=== PATIENT | female | born 1965 | race Caucasian/White ===

== ENCOUNTER → 2020-03-22 09:25 | Outpatient (CLI) | payer OTHER, SELFPAY ==
--- NOTE | 2020-03-22 09:32 | DI.MG.S_ITS ---
BILATERAL DIGITAL DIAGNOSTIC MAMMOGRAM 3D/2D: 03/22/2020 CLINICAL: Patient returns for a 6 month follow up of the right breast, due for bilateral exam. Comparison is made to exams dated: 09/20/2019 mammogram, 09/09/2019 mammogram, 08/27/2018 mammogram, and 08/14/2017 mammogram - [facility]. There are scattered fibroglandular elements in both breasts. There are stable grouped punctate calcifications in the right breast at 11 o'clock posterior depth. These are unchanged from the 2017 study. No other significant masses, calcifications, or other findings are seen in either breast. IMPRESSION: There is no mammographic evidence of malignancy. Return to annual mammogram screening schedule is recommended. This exam was interpreted at Station ID: [id number]. NOTE: For mammograms, a report in lay terms will be sent to the patient. Approximately 15% of breast malignancies will not be visualized mammographically. In the management of a palpable breast mass, a negative mammogram must not discourage biopsy of a clinically suspicious lesion. Electronically Signed By: Irish bhatt/:03/22/2020 10:28:00 letter sent: Normal Exam ACR BI-RADS Category 2: Benign Finding(s) 3342F
== END ==
PROVIDERS: PCP Student in an Organized Health Care Education/Training Program; Referring Provider Student in an Organized Health Care Education/Training Program; Visit Provider Student in an Organized Health Care Education/Training Program
DX: R92.1 Mammographic calcification found on diagnostic imaging of breast (principal)
CPT/HCPCS: 77066; G0279

== ENCOUNTER → 2020-05-17 10:24 | Outpatient (CLI) | payer OTHER, SELFPAY ==
[2020-05-19 08:52] LABS: COVID19 Sendout Not Detected (Not Detect)
== END ==
PROVIDERS: PCP Student in an Organized Health Care Education/Training Program; Visit Provider Physician Assistant
DX: Z11.59 Encounter for screening for other viral diseases (principal)
CPT/HCPCS: 87635

== ENCOUNTER → 2021-03-14 14:51 | Outpatient (CLI) | payer OTHER, SELFPAY ==
--- NOTE | 2021-03-14 | DI.MG.S_ITS ---
BILATERAL DIGITAL SCREENING MAMMOGRAM 3D/2D WITH CAD: 03/14/2021 CLINICAL: Routine screening. Comparison is made to exams dated: 03/22/2020 mammogram - [facility], 09/20/2019 mammogram, 09/09/2019 mammogram, and 08/27/2018 mammogram - [facility]. There are scattered fibroglandular elements in both breasts. Current study was also evaluated with a Computer Aided Detection (CAD) system. There is an oval equal density focal asymmetry with an indistinct margin in the right breast at 11 o'clock middle depth. No other significant masses, calcifications, or other findings are seen in either breast. IMPRESSION: INCOMPLETE: NEEDS ADDITIONAL IMAGING EVALUATION The oval equal density focal asymmetry in the right breast is indeterminate. Mediolateral and spot compression views as well as additional views with possible ultrasound are recommended. This exam was interpreted at Station ID: [id number]. NOTE: For mammograms, a report in lay terms will be sent to the patient. Approximately 15% of breast malignancies will not be visualized mammographically. In the management of a palpable breast mass, a negative mammogram must not discourage biopsy of a clinically suspicious lesion. Electronically Signed By: Edu singh/damion:03/14/2021 15:30:21 letter sent: Additional Imaging Needed ACR BI-RADS Category 0: Incomplete 3340F
== END ==
PROVIDERS: PCP Student in an Organized Health Care Education/Training Program; Referring Provider Student in an Organized Health Care Education/Training Program; Visit Provider Student in an Organized Health Care Education/Training Program
DX: Z12.31 Encounter for screening mammogram for malignant neoplasm of breast (principal); N64.89 Other specified disorders of breast
CPT/HCPCS: 77063; 77067

== ENCOUNTER → 2023-10-02 11:19 | Outpatient (CLI) | payer OTHER, SELFPAY ==
--- NOTE | 2023-10-02 11:27 | DI.RAD.S_ITS ---
PROCEDURE: XR FOOT RT MIN 3V INDICATIONS: RIGHT FOOT PAIN TECHNIQUE: 3 views of the foot were acquired. COMPARISON: None. FINDINGS: Bones: No fractures or dislocations. No suspicious bony lesions. Small calcaneal spur Soft tissues: No tibiotalar joint effusion. Achilles tendon appears normal. IMPRESSION: No acute bony abnormality. Approved by: Greg Nazario M.D. on 10/02/2023 at 19:39
== END ==
PROVIDERS: PCP Student in an Organized Health Care Education/Training Program; Referring Provider Podiatrist; Visit Provider Podiatrist
DX: M79.671 Pain in right foot (principal)
CPT/HCPCS: 73630

== ENCOUNTER → 2023-10-31 08:46 | Outpatient (CLI) | payer OTHER, SELFPAY ==
[2023-10-31 09:55] LABS: Add Manual Diff / Slide Review NO; Basophils Absolute Auto 0 /uL (0-100); Basophils Percent Auto 0.9 % (0-2); Eosinophils Absolute Auto 0 /uL (0-450); Eosinophils Percent Auto 0.8 % (2-4); Hematocrit 36.2 % (36-46); Hemoglobin 12.3 g/dL (12.0-16.0); Lymphocytes Absolute Auto 1200 /uL (1100-4500); Lymphocytes Percent Auto 32.8 % (25-40); Mean Corpuscular Hemoglobin 30.7 PG (26-34); Mean Corpuscular Volume 90.3 fL (80-100); Monocytes Absolute Auto 300 /uL (0-900); Monocytes Percent Auto 9.1 % (3-14); Neutrophils Absolute Auto 2100 /uL (1500-7000); Neutrophils Percent Auto 56.4 % (50-75); Platelet Count 193 X10^3/uL (150-400); Red Blood Cell Count 4.01 X10^6/uL (4.0-5.2); Red Cell Distribution Width 13.3 % (11.6-14.8); White Blood Cell Count 3.8 X10^3/uL (4.5-11.0)
[2023-10-31 10:02] LABS: Hemoglobin A1C% w Est Avg Glu 5.3 % (4.0-6.0)
[2023-10-31 10:07] LABS: Alanine Aminotransferase 20 IU/L (<35); Albumin Globulin Ratio 1.7 (1.0-2.8); Alkaline Phosphatase 62 U/L (38-126); Aspartate Aminotransferase 25 IU/L (14-36); Bilirubin Total 0.5 mg/dL (0.2-1.3); Blood Urea Nitrogen 16 mg/dL (7-17); Carbon Dioxide 29 mmol/L (22-32); Chloride 106 mmol/L (98-107); Cholesterol 154 mg/dL (140-199); Estimated Glomerular Filt Rate > 60 mL/min (>60); Globulin 2.4 g/dL (1.7-4.1); Glucose 81 mg/dL (80-110); HDL Cholesterol 60 mg/dL (40-60); HEMOLYSIS < 15 (0-50); LDL Cholesterol Calculated 83 mg/dL (<100); Potassium 4.1 mmol/L (3.4-5.1); Sodium 139 mmol/L (137-145); Total Protein 6.4 g/dL (6.3-8.2); Triglycerides 56 mg/dL (35-150)
[2023-10-31 11:06] LABS: HIV 1 & 2 Ab/Ag 4th Gen Combo NEGATIVE (NEGATIVE); Hep C Virus Ab w/Reflex Quant NEGATIVE s/c (NEGATIVE)
[2023-11-05 16:40] LABS: Lipoprotein (a) 390.9 nmol/L (<75.0)
== END ==
LOC: LAB 08:50
PROVIDERS: PCP Physician Assistant; Referring Provider Physician Assistant; Visit Provider Physician Assistant
DX: Z11.59 Encounter for screening for other viral diseases (principal); E78.5 Hyperlipidemia, unspecified; Z13.6 Encounter for screening for cardiovascular disorders; Z11.4 Encounter for screening for human immunodeficiency virus [HIV]
CPT/HCPCS: 36415; 80053; 80061; 83036; 83695; 85025; 86803; 87389

== ENCOUNTER → 2024-01-21 14:04 | Outpatient (CLI) | payer OTHER, SELFPAY ==
--- NOTE | 2024-01-21 14:07 | DI.RAD.S_ITS ---
PROCEDURE: XR SHOULDER LT MIN 2V INDICATIONS: LEFT SHOULDER PAIN TECHNIQUE: 3 views of the shoulder were acquired. COMPARISON: None. FINDINGS: Bones: No fractures or dislocations. No suspicious bony lesions. Visualized ribs appear intact. Soft tissues: No suspicious soft tissue calcifications. IMPRESSION: No acute bony abnormality. Dictated by: Luigi Schaefer M.D. on 01/21/2024 at 15:52 Approved by: Luigi Schaefer M.D. on 01/21/2024 at 15:53
--- NOTE | 2024-01-21 14:07 | DI.RAD.S_ITS ---
PROCEDURE: XR DEXA AXIAL SKELETON INDICATIONS: Asymptomatic menopausal state COMPARISON: None. FINDINGS: Lumbar Spine: Bone mineral density 0.876 g/cm2, T score -1.5. Left Hip: Bone mineral density 0.824 g/cm2, T score -1.0. Left Femoral Neck: Bone mineral density 0.645 g/cm2, T score -1.8. Right Hip: Bone mineral density 0.846 g/cm2, T score -0.8. Right Femoral Neck: Bone mineral density 0.688 g/cm2, T score -1.4. Fracture Risk Calculation (when applicable): 10-year fracture risk of a major osteoporotic fracture 9.2% and of a hip fracture 1.0%. (T score greater or equal to -1.0 to: NORMAL) (T score from -1.1 to -2.4: OSTEOPENIA) (T score less than or equal to -2.5: OSTEOPOROSIS) IMPRESSION: Osteopenia Follow-up guidelines as follows: Osteoporosis: Consider a repeat DEXA and Vertebral Fracture Assessment (VFA) exam in 2 years or sooner if medically necessary, to reassess this patient's status. Osteopenia: Consider a repeat DEXA in 2-3 years to reassess this patient's status, or if there is a new clinical indication. Normal: Consider a repeat DEXA in 5 years or sooner, or if there is a new clinical indication. All treatment decisions require clinical judgment and consideration of individual patient factors, including patient preferences, comorbidities, previous drug use, risk factors not captured in the FRAX model (e.g., frailty, falls, vitamin D deficiency, increased bone turnover, interval significant decline in bone density ) and possible under- or over-estimation of fracture risk by FRAX. In addition, the NOF Guide recommends that FDA-approved medical therapies be considered in postmenopausal women and men age >= 50 years with a: * Hip or vertebral (clinical or morphometric) fracture * T-score of <=-2.5 at the spine or hip * Ten-year fracture probability by FRAX of >= 3% for hip fracture or >=20% for major osteoporotic fracture. People with diagnosed cases of osteoporosis or at high risk for fracture should have regular bone mineral density tests. For patients eligible for Medicare, routine testing is allowed once every 2 years. The testing frequency can be increased to one year for patients who have rapidly progressing disease, those who are receiving or discontinuing medical therapy to restore bone mass, or have additional risk factors. Dictated by: Roel Strickland M.D. on 01/21/2024 at 21:46 Approved by: Roel Strickland M.D. on 01/21/2024 at 21:55
== END ==
PROVIDERS: Family Provider Physician Assistant; PCP Physician Assistant; Referring Provider Physician Assistant; Visit Provider Physician Assistant
DX: M25.512 Pain in left shoulder (principal); Z78.0 Asymptomatic menopausal state; M85.89 Other specified disorders of bone density and structure, multiple sites
CPT/HCPCS: 73030; 77080

== ENCOUNTER → 2024-03-23 11:37 | Outpatient (CLI) | payer OTHER, SELFPAY ==
--- NOTE | 2024-03-23 11:38 | DI.MG.S_ITS ---
BILATERAL DIGITAL SCREENING MAMMOGRAM 3D/2D WITH CAD: 03/23/2024 CLINICAL: Routine screening. Comparison is made to exams dated: 03/14/2021 mammogram, 03/22/2020 mammogram - [facility], 09/09/2019 mammogram, and 08/27/2018 mammogram - [facility]. There are scattered areas of fibroglandular density in both breasts (category b / 25%-50% glandular tissue). Current study was also evaluated with a Computer Aided Detection (CAD) system. No significant masses, calcifications, or other findings are seen in either breast. There has been no significant interval change. IMPRESSION: NEGATIVE There is no mammographic evidence of malignancy. A 1 year screening mammogram is recommended. Based on the Tyrer Cuzick model (a risk assessment model) the patient's lifetime risk is 6.6% and her 10 year risk is 2.6%. According to the ACR, ACS, and NCCN guidelines, an annual breast MRI exam along with mammogram is recommended if the patient's lifetime risk is 20% or greater. This exam was interpreted at Station ID: [id number]. NOTE: For mammograms, a report in lay terms will be sent to the patient. Approximately 15% of breast malignancies will not be visualized mammographically. In the management of a palpable breast mass, a negative mammogram must not discourage biopsy of a clinically suspicious lesion. Electronically Signed By: Reena pichardo/damion:03/23/2024 17:49:24 letter sent: Normal Exam ACR BI-RADS Category 1: Negative [id number]
== END ==
PROVIDERS: Family Provider Physician Assistant; PCP Physician Assistant; Referring Provider Physician Assistant; Visit Provider Physician Assistant
DX: Z12.31 Encounter for screening mammogram for malignant neoplasm of breast (principal); R92.323 Mammographic fibroglandular density, bilateral breasts
CPT/HCPCS: 77063; 77067

== ENCOUNTER 2024-04-20 11:15 | Outpatient (RCR) | payer OTHER, SELFPAY ==
--- NOTE | 2024-02-04 15:52 | PT.OIE ---
Current Diagnoses Other enthesopathies, not elsewhere classified (02/04/24) Dizziness and giddiness (02/04/24) Visit Care Team Role Provider Type Rupali Mehta PA-C Attending Provider Advanced General Production Manager Family Provider Primary Care Provider Referring Provider Specialty: Medical Address: [address] [place] [address], [id number] Email: Physical Therapy Initial Evaluation PT-OP-A Visit Information Start: 02/03/24 08:50 Freq: Status: Active Protocol: Document 02/04/24 14:31 MB (Rec: 02/04/24 15:49 [id number]) Out-Patient Physical Therapy Visit Information Visit Information Visit Type Initial Evaluation Visit Note [employer], Self-care Visit Start Time 14:31 Visit Stop Time 15:20 Visit Number 1 Evaluation Information Evaluation Date 02/04/24 Precautions Precautions History of BPPV PT-OP-B Current Condition Start: 02/03/24 08:50 Freq: Status: Active Protocol: Document 02/04/24 14:31 MB (Rec: 02/04/24 15:49 [id number]) Current Condition History of Current Condition Onset Date 4 months Current Complaints Left shoulder pain History of Current Condition 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 She would like to establish care and have access to someone who can treat her if needed. She currently does not have this. Pt reports gradual onset of left shoulder pain. She walks her dog who is a puller and a yanker. She asks about getting a personal shopper after PT. She sleeps on her back d/t lumbar transverse process fractures from the past. She points to B pelvic areas near sacrum. She puts a pillow under her left arm with sleeping. Occ she has pain down the arm and she notices it more at night time. Pt is right handed. She is retired. She only gardens at home. [place] of her parents 12-14 days out of every month. Driving is tiring. Prior Treatments and Tests Left shoulder x-ray is negative Treatment Goals Patient/Caregiver Goals To improve ROM and strength of left arm PT-OP-C Subjective Start: 02/03/24 08:50 Freq: Status: Active Protocol: Document 02/04/24 14:31 MB (Rec: 02/04/24 15:49 MB [id number]) OP-PT Subjective Patient Comments Patient Comments See history of current condition Patient Questionnaires Quick Dash- Upper Extremity Quick Dash UE Score 22 Quick Dash UE Impairment 20 to 39% Impaired (Score 20- 39) PT-OP-J Posture/Palpation/Skin Start: 02/03/24 08:50 Freq: Status: Active Protocol: Document 02/04/24 14:31 MB (Rec: 02/04/24 15:49 MB [id number]) Posture Evaluation Comments Posture Comments Flat thoracic spine proximally , rounded shoulders, right scapula is lower than the left , mid thoracic spine, mild convexity to the left and ribs more pronounced posterior on lower left area, increased supination left foot and increased pronation right foot , history of left ankle fracture. Posteriorly, B pelvis is grossly level and left shoulder is mildly higher than the right. PT-OP-K Range of Motion Start: 02/03/24 08:50 Freq: Status: Active Protocol: Document 02/04/24 14:31 MB (Rec: 02/04/24 15:49 MB [id number]) Cervical Spine Range of Motion Cervical Spine Active Testing Position Standing Comments Functional neck movement with slight decreased left rotation Thoracic rotation B with left 10% less than the right Shoulder Goniometric Range of Motion Shoulder Left Shoulder ROM WFL No Testing Position Standing/supine Flexion 115 Abduction 100 Internal Rotation Behind Back (text) S2 Comments Supine PROM for ER and IR: pt cannot get to 90 deg passive abduction and there is a hard end-feel around 65 deg and pt has apprehension and discomfort. ER at this angle is 5 deg and IR is 15 deg Right Shoulder ROM WFL Yes Testing Position Standing/supine Flexion 169 Abduction 165 Internal Rotation Behind Back (text) T5 Comments Supine 90/90 passive ER and IR WNLs PT-OP-M Strength Start: 02/04/24 15:50 Freq: Status: Active Protocol: Document 02/04/24 14:31 MB (Rec: 02/04/24 15:51 MB [id number]) Shoulder Strength Shoulder Manual Muscle Testing Left Comments Did not test d/t pain and limited range Right Flexion 5 Normal Abduction (C5) 5 Normal External Rotation 4+ Good+ Internal Rotation 4+ Good+ Elbow/Forearm Strength Elbow and Forearm Manual Muscle Testing Left Flexion (C6) 5 Normal Extension (C7) 4+ Good+ Right Flexion (C6) 5 Normal Extension (C7) 5 Normal PT-OP-Q Treatments Start: 02/03/24 08:50 Freq: Status: Active Protocol: Document 02/04/24 14:31 MB (Rec: 02/04/24 15:49 MB [id number]) Therapeutic Exercises Sitting Exercises Pulleys Comments Pt performs AAROM shoulder flexion and scaption Self-Care/Home Management Treatment Education Patient Education Body Mechanics,Home Exercise Program,Joint Protection,Pain Management,Posture Other Education Reviewed proper sleeping position to help protect shoulder in supine, discussed plan for PT treatment given her goals and schedule away to assist her parents, ed pt in benefits of purchasing pool noodles and pulleys PT-OP-T Assessment and Plan Start: 02/03/24 08:50 Freq: Status: Active Protocol: Document 02/04/24 14:31 MB (Rec: 02/04/24 15:49 MB [id number]) Physical Therapy Assessment Rehab Potential Rehabilitation Potential Fair Evaluation Complexity Number of Personal Factors/Comorbidities 1-2 Number of Body Systems Impaired 1-2 Clinical Presentation at Evaluation Evolving Impairments Impairments Activity Tolerance,Balance, Pain,Posture,ROM,Sensation, Soft Tissue Mobility,Strength, Vestibular Goals 3 Impairment Lack of HEP Plaster Whittler Goal (LTG) Pt will perform progressive HEP with I including postural, alignment, flexibility, strengthening and balance exercises to improve pain, range and strength. LTG Duration 10 weeks 2 Impairment Decreased left shoulder ROM Senior Care Goal (LTG) Pt will present with left shoulder flexion and abduction to at least 160 deg to improve functional use of arm with over tasks. LTG Duration 10 weeks 1 Impairment QuickDASH reflects 25% impairment Senior Care Goal (LTG) Pt will present with QuickDASH score reflecting no more than 5% impairment to improve ADLs and IADLs. LTG Duration 10 weeks Assessment Summary Assessment Pt is a 58 y/o female presenting with postural changes, left shoulder weakness and decreased active and passive left shoulder range of motion in setting of 4 month insidious onset of pain and stiffness. Pt states that her dog does pull a lot on the leash. Extensive education on ways to reduce dog pulling and left arm injury today. Pt has limited active left shoulder flexion, abduction and IR in standing and passive abduction and ER and IR in supine with hard end -feel with abduction as well as guarding and apprehension. Pt spends half the month away from home helping her parents. This may make OPPT challenging and she says she is a compliant. PT is concerned about adhesive capsulitis pattern of presentation given insidious onset over time without real injury in 58 y/o post- menopausal female. She may benefit from talking with primary provider about hormone testing and may also benefit from orthopedic consult in addition to PT. She will benefit from PT to improve range, strength, posture and pain. Pt reports a history of BPPV so will assess and treat if needed during PT course. Physical Therapy Plan Frequency and Duration Frequency of Treatment 1-2/wk Duration of treatment (weeks) 10 Plan of Care Start Date 02/04/24 Plan of Care End Date 04/23/24 Therapeutic Interventions Therapeutic Interventions Balance Training,Canalithic Repositioning,Home Exercise Program,Joint Mobilizations, Manual Therapy,Neuromuscular Re-education,Patient/Caregiver Education,Self-Care/Home Management,Soft Tissue Mobilization,Taping, Therapeutic Activities, Therapeutic Exercises, Vestibular Rehabilitation Modalities Cold Pack/Ice Massage,Electric Stimulation,Hot Packs, Ultrasound Other Referrals/Consults Referrals/Consults Recommended Orthopedic consult, PCP to check hormone panel Next Visit Focus/Plan Next Note Type Treatment Note Next Visit Plan Pool noodle and cane range exercises Isometrics in future Manual work including [place] Protocol
--- NOTE | 2024-02-04 15:52 | PT.OPPOC ---
Physical, Occupational & Speech Therapy At [facility] Current Diagnoses Other enthesopathies, not elsewhere classified (02/04/24) Dizziness and giddiness (02/04/24) Visit Care Team Role Provider Type Rupali Mehta PA-C Attending Provider Advanced Ball Shagger Family Provider Primary Care Provider Referring Provider Specialty: Medical Address: [address] [place] [address], [id number] Email: Plan Of Care PT-OP-T Assessment and Plan Start: 02/03/24 08:50 Freq: Status: Active Protocol: Document 02/04/24 14:31 MB (Rec: 02/04/24 15:49 MB [id number]) Physical Therapy Assessment Rehab Potential Rehabilitation Potential Fair Evaluation Complexity Number of Personal Factors/Comorbidities 1-2 Number of Body Systems Impaired 1-2 Clinical Presentation at Evaluation Evolving Impairments Impairments Activity Tolerance,Balance, Pain,Posture,ROM,Sensation, Soft Tissue Mobility,Strength, Vestibular Goals 3 Impairment Lack of HEP Longterm Goal (LTG) Pt will perform progressive HEP with I including postural, alignment, flexibility, strengthening and balance exercises to improve pain, range and strength. LTG Duration 10 weeks 2 Impairment Decreased left shoulder ROM Longterm Goal (LTG) Pt will present with left shoulder flexion and abduction to at least 160 deg to improve functional use of arm with over tasks. LTG Duration 10 weeks 1 Impairment QuickDASH reflects 25% impairment Longterm Goal (LTG) Pt will present with QuickDASH score reflecting no more than 5% impairment to improve ADLs and IADLs. LTG Duration 10 weeks Assessment Summary Assessment Pt is a 58 y/o female presenting with postural changes, left shoulder weakness and decreased active and passive left shoulder range of motion in setting of 4 month insidious onset of pain and stiffness. Pt states that her dog does pull a lot on the leash. Extensive education on ways to reduce dog pulling and left arm injury today. Pt has limited active left shoulder flexion, abduction and IR in standing and passive abduction and ER and IR in supine with hard end -feel with abduction as well as guarding and apprehension. Pt spends half the month away from home helping her parents. This may make OPPT challenging and she says she is a compliant. PT is concerned about adhesive capsulitis pattern of presentation given insidious onset over time without real injury in 58 y/o post- menopausal female. She may benefit from talking with primary provider about hormone testing and may also benefit from orthopedic consult in addition to PT. She will benefit from PT to improve range, strength, posture and pain. Pt reports a history of BPPV so will assess and treat if needed during PT course. Physical Therapy Plan Frequency and Duration Frequency of Treatment 1-2/wk Duration of treatment (weeks) 10 Plan of Care Start Date 02/04/24 Plan of Care End Date 04/23/24 Therapeutic Interventions Therapeutic Interventions Balance Training,Canalithic Repositioning,Home Exercise Program,Joint Mobilizations, Manual Therapy,Neuromuscular Re-education,Patient/Caregiver Education,Self-Care/Home Management,Soft Tissue Mobilization,Taping, Therapeutic Activities, Therapeutic Exercises, Vestibular Rehabilitation Modalities Cold Pack/Ice Massage,Electric Stimulation,Hot Packs, Ultrasound Other Referrals/Consults Referrals/Consults Recommended Orthopedic consult, PCP to check hormone panel Next Visit Focus/Plan Next Note Type Treatment Note Next Visit Plan Pool noodle and cane range exercises Isometrics in future Manual work including [place] Protocol Plan of Care Dates Plan of Care Start Date 02/04/24 Plan of Care End Date 04/23/24 Electronically Signed by: Chapis Marmolejo, PT 02/04/24 1693 If you are in agreement with this Plan of Care, please return a signed and dated copy. I have reviewed this Plan of Care and certify that the skilled therapy services above are required to meet the patient?s needs. Physician Signature Date Printed Name and Credentials Clinical Instructor Signature Printed Name and Credentials
--- NOTE | 2024-02-10 10:32 | PT.OTN ---
Current Diagnoses Other enthesopathies, not elsewhere classified (02/10/24) Dizziness and giddiness (02/10/24) Physical Therapy Treatment Note PT-OP-A Visit Information Start: 02/03/24 08:50 Freq: Status: Active Protocol: Document 02/10/24 09:45 MB (Rec: 02/10/24 10:32 MB [id number]) Out-Patient Physical Therapy Visit Information Visit Information Visit Type Treatment Note Visit Note [employer], Self-care Visit Start Time 09:45 Visit Stop Time 10:25 Visit Number 2 Evaluation Information Evaluation Date 02/04/24 Precautions Precautions History of BPPV PT-OP-B Current Condition Start: 02/03/24 08:50 Freq: Status: Active Protocol: Document 02/04/24 14:31 MB (Rec: 02/04/24 15:49 MB [id number]) Current Condition History of Current Condition Onset Date 4 months Current Complaints Left shoulder pain History of Current Condition 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 She would like to establish care and have access to someone who can treat her if needed. She currently does not have this. Pt reports gradual onset of left shoulder pain. She walks her dog who is a puller and a yanker. She asks about getting a animal attendants and trainers after PT. She sleeps on her back d/t lumbar transverse process fractures from the past. She points to B pelvic areas near sacrum. She puts a pillow under her left arm with sleeping. Occ she has pain down the arm and she notices it more at night time. Pt is right handed. She is retired. She only gardens at home. [place] of her parents 12-14 days out of every month. Driving is tiring. Prior Treatments and Tests Left shoulder x-ray is negative Treatment Goals Patient/Caregiver Goals To improve ROM and strength of left arm PT-OP-C Subjective Start: 02/03/24 08:50 Freq: Status: Active Protocol: Document 02/10/24 09:45 MB (Rec: 02/10/24 10:32 MB [id number]) OP-PT Subjective Patient Comments Patient Comments Pt brings in pulleys and pool noodle and she is ready to work on exercises with these. PT-OP-J Posture/Palpation/Skin Start: 02/03/24 08:50 Freq: Status: Active Protocol: Document 02/04/24 14:31 MB (Rec: 02/04/24 15:49 MB [id number]) Posture Evaluation Comments Posture Comments Flat thoracic spine proximally , rounded shoulders, right scapula is lower than the left , mid thoracic spine, mild convexity to the left and ribs more pronounced posterior on lower left area, increased supination left foot and increased pronation right foot , history of left ankle fracture. Posteriorly, B pelvis is grossly level and left shoulder is mildly higher than the right. PT-OP-K Range of Motion Start: 02/03/24 08:50 Freq: Status: Active Protocol: Document 02/04/24 14:31 MB (Rec: 02/04/24 15:49 MB [id number]) Cervical Spine Range of Motion Cervical Spine Active Testing Position Standing Comments Functional neck movement with slight decreased left rotation Thoracic rotation B with left 10% less than the right Shoulder Goniometric Range of Motion Shoulder Left Shoulder ROM WFL No Testing Position Standing/supine Flexion 115 Abduction 100 Internal Rotation Behind Back (text) S2 Comments Supine PROM for ER and IR: pt cannot get to 90 deg passive abduction and there is a hard end-feel around 65 deg and pt has apprehension and discomfort. ER at this angle is 5 deg and IR is 15 deg Right Shoulder ROM WFL Yes Testing Position Standing/supine Flexion 169 Abduction 165 Internal Rotation Behind Back (text) T5 Comments Supine 90/90 passive ER and IR WNLs PT-OP-M Strength Start: 02/04/24 15:50 Freq: Status: Active Protocol: Document 02/04/24 14:31 MB (Rec: 02/04/24 15:51 MB [id number]) Shoulder Strength Shoulder Manual Muscle Testing Left Comments Did not test d/t pain and limited range Right Flexion 5 Normal Abduction (C5) 5 Normal External Rotation 4+ Good+ Internal Rotation 4+ Good+ Elbow/Forearm Strength Elbow and Forearm Manual Muscle Testing Left Flexion (C6) 5 Normal Extension (C7) 4+ Good+ Right Flexion (C6) 5 Normal Extension (C7) 5 Normal PT-OP-Q Treatments Start: 02/03/24 08:50 Freq: Status: Active Protocol: Document 02/10/24 09:45 MB (Rec: 02/10/24 10:32 MB [id number]) Therapeutic Exercises Supine Exercises Pect stretch over pool noodle Comments Knees bent and back flat, core engaged Pool noodle work Comments Flat low back, knees bent, core work, cane flexion and abduction Sitting Exercises Scapular retraction with pool noodle Comments Ed pt to perform in car and when sitting on couch Pulleys Sitting Exercise Name Also taught forward and backwards bicycling Comments Pt performs AAROM shoulder flexion and scaption Manual Therapy Treatment Other Other Manual Treatments Pt supine with head and legs supported: left rib isometric mob, B pects, upper traps and levator STM, cervical spine mobs grade II-III PA mid and lower cervical spine PT-OP-T Assessment and Plan Start: 02/03/24 08:50 Freq: Status: Active Protocol: Document 02/10/24 09:45 MB (Rec: 02/10/24 10:32 MB [id number]) Physical Therapy Assessment Rehab Potential Rehabilitation Potential Fair Evaluation Complexity Number of Personal Factors/Comorbidities 1-2 Number of Body Systems Impaired 1-2 Clinical Presentation at Evaluation Evolving Impairments Impairments Activity Tolerance,Balance, Pain,Posture,ROM,Sensation, Soft Tissue Mobility,Strength, Vestibular Goals 3 Impairment Lack of HEP Snf Goal (LTG) Pt will perform progressive HEP with I including postural, alignment, flexibility, strengthening and balance exercises to improve pain, range and strength. LTG Duration 10 weeks 2 Impairment Decreased left shoulder ROM Snf Goal (LTG) Pt will present with left shoulder flexion and abduction to at least 160 deg to improve functional use of arm with over tasks. LTG Duration 10 weeks 1 Impairment QuickDASH reflects 25% impairment Snf Goal (LTG) Pt will present with QuickDASH score reflecting no more than 5% impairment to improve ADLs and IADLs. LTG Duration 10 weeks Assessment Summary Assessment Initiated postural work and shoulder progression, con't to advance to tolerance. Con't manual work. Physical Therapy Plan Frequency and Duration Frequency of Treatment 1-2/wk Duration of treatment (weeks) 10 Plan of Care Start Date 02/04/24 Plan of Care End Date 04/23/24 Therapeutic Interventions Therapeutic Interventions Balance Training,Canalithic Repositioning,Home Exercise Program,Joint Mobilizations, Manual Therapy,Neuromuscular Re-education,Patient/Caregiver Education,Self-Care/Home Management,Soft Tissue Mobilization,Taping, Therapeutic Activities, Therapeutic Exercises, Vestibular Rehabilitation Modalities Cold Pack/Ice Massage,Electric Stimulation,Hot Packs, Ultrasound Other Referrals/Consults Referrals/Consults Recommended Orthopedic consult, PCP to check hormone panel Next Visit Focus/Plan Next Note Type Treatment Note Next Visit Plan Review current exercises and manual work Isometrics in future, consider holding band in neutral at side and walking out to engage ERs and IRs, scapular retraction with band in standing Manual work including [place] Protocol
--- NOTE | 2024-02-13 11:14 | PT.OTN ---
Current Diagnoses Other enthesopathies, not elsewhere classified (02/13/24) Dizziness and giddiness (02/13/24) Physical Therapy Treatment Note PT-OP-A Visit Information Start: 02/03/24 08:50 Freq: Status: Active Protocol: Document 02/13/24 10:34 SP (Rec: 02/13/24 11:23 SP [id number]) Out-Patient Physical Therapy Visit Information Visit Information Visit Type Treatment Note Visit Note [employer], Self-care Visit Start Time 10:34 Visit Stop Time 11:14 Visit Number 3 Number of LENS FABRICATING MACHINE TENDER Visits 1 Evaluation Information Evaluation Date 02/04/24 Precautions Precautions History of BPPV PT-OP-B Current Condition Start: 02/03/24 08:50 Freq: Status: Active Protocol: Document 02/04/24 14:31 MB (Rec: 02/04/24 15:49 MB [id number]) Current Condition History of Current Condition Onset Date 4 months Current Complaints Left shoulder pain History of Current Condition 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 She would like to establish care and have access to someone who can treat her if needed. She currently does not have this. Pt reports gradual onset of left shoulder pain. She walks her dog who is a puller and a yanker. She asks about getting a dolphin trainer after PT. She sleeps on her back d/t lumbar transverse process fractures from the past. She points to B pelvic areas near sacrum. She puts a pillow under her left arm with sleeping. Occ she has pain down the arm and she notices it more at night time. Pt is right handed. She is retired. She only gardens at home. [place] care of her parents 12-14 days out of every month. Driving is tiring. Prior Treatments and Tests Left shoulder x-ray is negative Treatment Goals Patient/Caregiver Goals To improve ROM and strength of left arm PT-OP-C Subjective Start: 02/03/24 08:50 Freq: Status: Active Protocol: Document 02/13/24 10:34 SP (Rec: 02/13/24 11:23 SP [id number]) OP-PT Subjective Patient Comments Patient Comments Pt reports compliant with HEP over noodle, little sore anterior L shld but goes away with CP. Doing 2x/day if can with busy schedule. PT-OP-J Posture/Palpation/Skin Start: 02/03/24 08:50 Freq: Status: Active Protocol: Document 02/04/24 14:31 MB (Rec: 02/04/24 15:49 MB [id number]) Posture Evaluation Comments Posture Comments Flat thoracic spine proximally , rounded shoulders, right scapula is lower than the left , mid thoracic spine, mild convexity to the left and ribs more pronounced posterior on lower left area, increased supination left foot and increased pronation right foot , history of left ankle fracture. Posteriorly, B pelvis is grossly level and left shoulder is mildly higher than the right. PT-OP-K Range of Motion Start: 02/03/24 08:50 Freq: Status: Active Protocol: Document 02/04/24 14:31 MB (Rec: 02/04/24 15:49 MB [id number]) Cervical Spine Range of Motion Cervical Spine Active Testing Position Standing Comments Functional neck movement with slight decreased left rotation Thoracic rotation B with left 10% less than the right Shoulder Goniometric Range of Motion Shoulder Left Shoulder ROM WFL No Testing Position Standing/supine Flexion 115 Abduction 100 Internal Rotation Behind Back (text) S2 Comments Supine PROM for ER and IR: pt cannot get to 90 deg passive abduction and there is a hard end-feel around 65 deg and pt has apprehension and discomfort. ER at this angle is 5 deg and IR is 15 deg Right Shoulder ROM WFL Yes Testing Position Standing/supine Flexion 169 Abduction 165 Internal Rotation Behind Back (text) T5 Comments Supine 90/90 passive ER and IR WNLs PT-OP-M Strength Start: 02/04/24 15:50 Freq: Status: Active Protocol: Document 02/04/24 14:31 MB (Rec: 02/04/24 15:51 MB [id number]) Shoulder Strength Shoulder Manual Muscle Testing Left Comments Did not test d/t pain and limited range Right Flexion 5 Normal Abduction (C5) 5 Normal External Rotation 4+ Good+ Internal Rotation 4+ Good+ Elbow/Forearm Strength Elbow and Forearm Manual Muscle Testing Left Flexion (C6) 5 Normal Extension (C7) 4+ Good+ Right Flexion (C6) 5 Normal Extension (C7) 5 Normal PT-OP-Q Treatments Start: 02/03/24 08:50 Freq: Status: Active Protocol: Document 02/13/24 10:34 SP (Rec: 02/13/24 11:23 SP [id number]) Therapeutic Exercises Supine Exercises Pect stretch over pool noodle Reps/Minutes 30 sec hold Comments Knees bent and back flat, core engaged Pool noodle work Supine Exercise Name cane flexion and abduction Side left Reps/Minutes 8 reps each Comments cued Flat low back, knees bent , core work Sitting Exercises Scapular retraction with pool noodle Sitting Exercise Name continued discussion- not performed 02/12 Comments Ed pt to perform in car and when sitting on couch Other Exercises self STMs Other Exercise Name initiated ball rolling post interscap, theracane post cervical paraspinals Side left Equipment Used racquetball wall (pillowcase to much sliding, better without), theracane Reps/Minutes 2 min Comments good feedback response- MWM head nods/turns, scap mob small range Manual Therapy Treatment Other Other Manual Treatments Pt supine with head and legs supported: B upper traps, L>R levator, L>R SCM, L>R scalene STM manual and ed theracane self assist SCM pincer kneading and MWM head turns/ nods. Self-Care/Home Management Treatment Education Patient Education Body Mechanics,Home Exercise Program,Joint Protection,Pain Management,Posture Other Education 8 min: ed postural awareness and anatomy alignment carryover support, self STMs use ballwall and theracane. PT-OP-T Assessment and Plan Start: 02/03/24 08:50 Freq: Status: Active Protocol: Document 02/13/24 10:34 SP (Rec: 02/13/24 11:23 SP [id number]) Physical Therapy Assessment Goals 3 Impairment Lack of HEP Impairment . Stock Or Delivery Clerk Goal (LTG) Pt will perform progressive HEP with I including postural, alignment, flexibility, strengthening and balance exercises to improve pain, range and strength. LTG Duration 10 weeks 2 Impairment Decreased left shoulder ROM Impairment . [facility] Goal (LTG) Pt will present with left shoulder flexion and abduction to at least 160 deg to improve functional use of arm with over tasks. LTG Duration 10 weeks 1 Impairment QuickDASH reflects 25% impairment Impairment . Stock Or Delivery Clerk Goal (LTG) Pt will present with QuickDASH score reflecting no more than 5% impairment to improve ADLs and IADLs. LTG Duration 10 weeks Assessment Summary Assessment Pt responded well to manual and carryover self application home after ed on anatomy mechanics for postural awareness during mobility. Cues for painfree range AROM at this time with support of cane toward return to normal ROM with education before adding resistance progression for reduction in UT recruitment. Pt better understanding better quality form. Physical Therapy Plan Frequency and Duration Frequency of Treatment 1-2/wk Duration of treatment (weeks) 10 Plan of Care Start Date 02/04/24 Plan of Care End Date 04/23/24 Therapeutic Interventions Therapeutic Interventions Balance Training,Canalithic Repositioning,Home Exercise Program,Joint Mobilizations, Manual Therapy,Neuromuscular Re-education,Patient/Caregiver Education,Self-Care/Home Management,Soft Tissue Mobilization,Taping, Therapeutic Activities, Therapeutic Exercises, Vestibular Rehabilitation Modalities Cold Pack/Ice Massage,Electric Stimulation,Hot Packs, Ultrasound Other Referrals/Consults Referrals/Consults Recommended Orthopedic consult, PCP to check hormone panel Next Visit Focus/Plan Next Note Type Treatment Note Next Visit Plan Check response to manual and self ex use ball wall and theracane. Continue reviewed current exercises toward better ROM. manual work. Isometrics in future, consider holding band in neutral at side and walking out to engage ERs and IRs, scapular retraction with band in standing Manual work including [place] Protocol
--- NOTE | 2024-02-25 09:01 | PT.OTN ---
Current Diagnoses Other enthesopathies, not elsewhere classified (02/25/24) Dizziness and giddiness (02/25/24) Physical Therapy Treatment Note PT-OP-A Visit Information Start: 02/03/24 08:50 Freq: Status: Active Protocol: Document 02/25/24 08:18 SP (Rec: 02/25/24 09:06 SP [id number]) Out-Patient Physical Therapy Visit Information Visit Information Visit Type Treatment Note Visit Note [employer], Self-care Visit Start Time 08:18 Visit Stop Time 09:01 Visit Number 4 Number of WATER TREATMENT SPECIALIST Visits 2 Evaluation Information Evaluation Date 02/04/24 Precautions Precautions History of BPPV PT-OP-B Current Condition Start: 02/03/24 08:50 Freq: Status: Active Protocol: Document 02/04/24 14:31 MB (Rec: 02/04/24 15:49 MB [id number]) Current Condition History of Current Condition Onset Date 4 months Current Complaints Left shoulder pain History of Current Condition 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 She would like to establish care and have access to someone who can treat her if needed. She currently does not have this. Pt reports gradual onset of left shoulder pain. She walks her dog who is a puller and a yanker. She asks about getting a personal support worker after PT. She sleeps on her back d/t lumbar transverse process fractures from the past. She points to B pelvic areas near sacrum. She puts a pillow under her left arm with sleeping. Occ she has pain down the arm and she notices it more at night time. Pt is right handed. She is retired. She only gardens at home. [place] of her parents 12-14 days out of every month. Driving is tiring. Prior Treatments and Tests Left shoulder x-ray is negative Treatment Goals Patient/Caregiver Goals To improve ROM and strength of left arm PT-OP-C Subjective Start: 02/03/24 08:50 Freq: Status: Active Protocol: Document 02/25/24 08:18 SP (Rec: 02/25/24 09:06 SP [id number]) OP-PT Subjective Patient Comments Patient Comments Pt reports out of town and tried to keep up with ex 70 %, not all days 2x. The theracane is very helpful and family found will get one too. She states Some days couldn't use noodle so tried to at least do Ws with best posture could. SHe reports is noticing if has to pinner printed circuit boards alot, lay on R side: R arm to hand gets tingling posterior surface R arm to 4-5th fingers, goes away with rest. But noticing alot more when used the weed eater/boot trimmer. PT-OP-J Posture/Palpation/Skin Start: 02/03/24 08:50 Freq: Status: Active Protocol: Document 02/04/24 14:31 MB (Rec: 02/04/24 15:49 MB [id number]) Posture Evaluation Comments Posture Comments Flat thoracic spine proximally , rounded shoulders, right scapula is lower than the left , mid thoracic spine, mild convexity to the left and ribs more pronounced posterior on lower left area, increased supination left foot and increased pronation right foot , history of left ankle fracture. Posteriorly, B pelvis is grossly level and left shoulder is mildly higher than the right. PT-OP-K Range of Motion Start: 02/03/24 08:50 Freq: Status: Active Protocol: Document 02/04/24 14:31 MB (Rec: 02/04/24 15:49 MB [id number]) Cervical Spine Range of Motion Cervical Spine Active Testing Position Standing Comments Functional neck movement with slight decreased left rotation Thoracic rotation B with left 10% less than the right Shoulder Goniometric Range of Motion Shoulder Left Shoulder ROM WFL No Testing Position Standing/supine Flexion 115 Abduction 100 Internal Rotation Behind Back (text) S2 Comments Supine PROM for ER and IR: pt cannot get to 90 deg passive abduction and there is a hard end-feel around 65 deg and pt has apprehension and discomfort. ER at this angle is 5 deg and IR is 15 deg Right Shoulder ROM WFL Yes Testing Position Standing/supine Flexion 169 Abduction 165 Internal Rotation Behind Back (text) T5 Comments Supine 90/90 passive ER and IR WNLs PT-OP-M Strength Start: 02/04/24 15:50 Freq: Status: Active Protocol: Document 02/04/24 14:31 MB (Rec: 02/04/24 15:51 MB [id number]) Shoulder Strength Shoulder Manual Muscle Testing Left Comments Did not test d/t pain and limited range Right Flexion 5 Normal Abduction (C5) 5 Normal External Rotation 4+ Good+ Internal Rotation 4+ Good+ Elbow/Forearm Strength Elbow and Forearm Manual Muscle Testing Left Flexion (C6) 5 Normal Extension (C7) 4+ Good+ Right Flexion (C6) 5 Normal Extension (C7) 5 Normal PT-OP-Q Treatments Start: 02/03/24 08:50 Freq: Status: Active Protocol: Document 02/25/24 08:18 SP (Rec: 02/25/24 09:06 SP [id number]) Therapeutic Exercises Supine Exercises Pect stretch over pool noodle Supine Exercise Name Pec stretch (1st) & Ws (Last- [place]) Resistance uses thicker noodle home, normal car Reps/Minutes 30 sec hold, Ws x10 Comments Knees bent and back flat, core engaged Pool noodle work Supine Exercise Name cane flexion (148*), abduction (103* Side left Equipment Used use black dowel (use wooden 1 home) Reps/Minutes 10 reps each Comments cued Flat low back, knees bent , core work Sidelying Exercises abduction Sidelying Exercise Name trialed in PT Side left Resistance AROM approx 80deg Reps/Minutes x3 reps Comments tactile cue scapular glide, humeral ER open book Sidelying Exercise Name trialed in PT Side left Resistance AROM Reps/Minutes 3 reps Comments tactile cue scapular glide, humeral ER Sitting Exercises Scapular retraction with pool noodle Sitting Exercise Name standing and seated couch carryover Reps/Minutes 1 min wall Comments got 2 noodles, cut 1 and tried in car on her drive /c safety driving- good Pulleys Sitting Exercise Name Bicycling, scaption, FF- HEP reviewed Side bilateral Resistance AAROM Equipment Used handles vs top handles, front mirror self aware no UT Reps/Minutes 2 min fwd & bwd bicycle, 1 min hold FF & Scaption Comments cued head nod neutral, tactile cue scap/hand post Other Exercises self STMs Other Exercise Name Ball roll interscap Side right Equipment Used racquetball wall (pillowcase to much sliding, better without) Reps/Minutes 2 min Comments good feedback response less tension- MWM Self-Care/Home Management Treatment Education Patient Education Body Mechanics,Home Exercise Program,Posture Other Education 8 min: ed anatomy /c skeleton scapular glide complex for inferior glide during FF/ scaption. PT-OP-T Assessment and Plan Start: 02/03/24 08:50 Freq: Status: Active Protocol: Document 02/25/24 08:18 SP (Rec: 02/25/24 09:06 SP [id number]) Physical Therapy Assessment Goals 3 Impairment Lack of HEP Impairment . Machine Room Operator Goal (LTG) Pt will perform progressive HEP with I including postural, alignment, flexibility, strengthening and balance exercises to improve pain, range and strength. LTG Duration 10 weeks 2 Impairment Decreased left shoulder ROM Impairment . [facility] Goal (LTG) Pt will present with left shoulder flexion and abduction to at least 160 deg to improve functional use of arm with over tasks. 02/25/24: Supine: LUE AAROM /c DOwel: FF 148*, ABD 103* LTG Duration 10 weeks 1 Impairment QuickDASH reflects 25% impairment Impairment . [facility] Goal (LTG) Pt will present with QuickDASH score reflecting no more than 5% impairment to improve ADLs and IADLs. LTG Duration 10 weeks Assessment Summary Assessment Pt required tactile cues for scapular inferior and rotation glide and humeral ER during ther ex, improved reduction UT recruitment. Pt reports less neck tension with better positioning. Improvement in range noted use dowel and use floor during Ws. Trialed sidelying AROM, noted muscle quiverying, no pain, tactile cues form, not given as HEP just checking what range capable on side. Physical Therapy Plan Frequency and Duration Frequency of Treatment 1-2/wk Duration of treatment (weeks) 10 Plan of Care Start Date 02/04/24 Plan of Care End Date 04/23/24 Therapeutic Interventions Therapeutic Interventions Balance Training,Canalithic Repositioning,Home Exercise Program,Joint Mobilizations, Manual Therapy,Neuromuscular Re-education,Patient/Caregiver Education,Self-Care/Home Management,Soft Tissue Mobilization,Taping, Therapeutic Activities, Therapeutic Exercises, Vestibular Rehabilitation Modalities Cold Pack/Ice Massage,Electric Stimulation,Hot Packs, Ultrasound Other Referrals/Consults Referrals/Consults Recommended Orthopedic consult, PCP to check hormone panel Next Visit Focus/Plan Next Note Type Treatment Note Next Visit Plan Check ROM with dowel, scapular glide ROM. Possible add side open book and ABD. POC: Continue reviewed current exercises toward better ROM. manual work. Isometrics in future, consider holding band in neutral at side and walking out to engage ERs and IRs, scapular retraction with band in standing Manual work including [place] Protocol
--- NOTE | 2024-03-01 10:28 | PT.OTN ---
Current Diagnoses Other enthesopathies, not elsewhere classified (03/01/24) Dizziness and giddiness (03/01/24) Physical Therapy Treatment Note PT-OP-A Visit Information Start: 02/03/24 08:50 Freq: Status: Active Protocol: Document 03/01/24 09:47 SP (Rec: 03/01/24 10:31 SP [id number]) Out-Patient Physical Therapy Visit Information Visit Information Visit Type Treatment Note Visit Note [employer], Self-care Visit Start Time 09:48 Visit Stop Time 10:28 Visit Number 5 Number of BACK SEWER Visits 3 Evaluation Information Evaluation Date 02/04/24 Precautions Precautions History of BPPV PT-OP-B Current Condition Start: 02/03/24 08:50 Freq: Status: Active Protocol: Document 02/04/24 14:31 MB (Rec: 02/04/24 15:49 MB [id number]) Current Condition History of Current Condition Onset Date 4 months Current Complaints Left shoulder pain History of Current Condition 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 She would like to establish care and have access to someone who can treat her if needed. She currently does not have this. Pt reports gradual onset of left shoulder pain. She walks her dog who is a puller and a yanker. She asks about getting a personalized living manager nurse after PT. She sleeps on her back d/t lumbar transverse process fractures from the past. She points to B pelvic areas near sacrum. She puts a pillow under her left arm with sleeping. Occ she has pain down the arm and she notices it more at night time. Pt is right handed. She is retired. She only gardens at home. [place] of her parents 12-14 days out of every month. Driving is tiring. Prior Treatments and Tests Left shoulder x-ray is negative Treatment Goals Patient/Caregiver Goals To improve ROM and strength of left arm PT-OP-C Subjective Start: 02/03/24 08:50 Freq: Status: Active Protocol: Document 03/01/24 09:47 SP (Rec: 03/01/24 10:31 SP [id number]) OP-PT Subjective Patient Comments Patient Comments Pt reports doing well with HEP , using theracane and helping alot. She reports less soreness after HEP. PT-OP-J Posture/Palpation/Skin Start: 02/03/24 08:50 Freq: Status: Active Protocol: Document 02/04/24 14:31 MB (Rec: 02/04/24 15:49 MB [id number]) Posture Evaluation Comments Posture Comments Flat thoracic spine proximally , rounded shoulders, right scapula is lower than the left , mid thoracic spine, mild convexity to the left and ribs more pronounced posterior on lower left area, increased supination left foot and increased pronation right foot , history of left ankle fracture. Posteriorly, B pelvis is grossly level and left shoulder is mildly higher than the right. PT-OP-K Range of Motion Start: 02/03/24 08:50 Freq: Status: Active Protocol: Document 02/04/24 14:31 MB (Rec: 02/04/24 15:49 MB [id number]) Cervical Spine Range of Motion Cervical Spine Active Testing Position Standing Comments Functional neck movement with slight decreased left rotation Thoracic rotation B with left 10% less than the right Shoulder Goniometric Range of Motion Shoulder Left Shoulder ROM WFL No Testing Position Standing/supine Flexion 115 Abduction 100 Internal Rotation Behind Back (text) S2 Comments Supine PROM for ER and IR: pt cannot get to 90 deg passive abduction and there is a hard end-feel around 65 deg and pt has apprehension and discomfort. ER at this angle is 5 deg and IR is 15 deg Right Shoulder ROM WFL Yes Testing Position Standing/supine Flexion 169 Abduction 165 Internal Rotation Behind Back (text) T5 Comments Supine 90/90 passive ER and IR WNLs PT-OP-M Strength Start: 02/04/24 15:50 Freq: Status: Active Protocol: Document 02/04/24 14:31 MB (Rec: 02/04/24 15:51 MB [id number]) Shoulder Strength Shoulder Manual Muscle Testing Left Comments Did not test d/t pain and limited range Right Flexion 5 Normal Abduction (C5) 5 Normal External Rotation 4+ Good+ Internal Rotation 4+ Good+ Elbow/Forearm Strength Elbow and Forearm Manual Muscle Testing Left Flexion (C6) 5 Normal Extension (C7) 4+ Good+ Right Flexion (C6) 5 Normal Extension (C7) 5 Normal PT-OP-Q Treatments Start: 02/03/24 08:50 Freq: Status: Active Protocol: Document 03/01/24 09:47 SP (Rec: 03/01/24 10:31 SP [id number]) Therapeutic Exercises Supine Exercises Pect stretch over pool noodle Supine Exercise Name Pec stretch (1st) & Ws (Last- [place]) Equipment Used uses thicker noodle home, normal car Reps/Minutes 30 sec hold, Ws x10 Comments good knees bent, TA draw in, scap back pocket,forearms more //floor and ROM Pool noodle work Supine Exercise Name cane flexion (148*), abduction (105* Side left Resistance AAROM over small foam roller Equipment Used use black dowel (use wooden 1 home) Reps/Minutes 12 reps each Comments cued TA draw in LB toward roller, eliminated arch tension recruitment Sidelying Exercises abduction Sidelying Exercise Name continued in PT- pt asked add to HEP Side left Resistance AROM approx 112deg Reps/Minutes x8 reps Comments tactile cue scapular glide, humeral ER, slight serratus away- less deltoid open book Sidelying Exercise Name continued in PT- pt asked add to HEP Side left Resistance AROM Reps/Minutes 5 Comments tactile cue scapular glide, humeral ER Standing Exercises wall walking Standing Exercise Name trialed in PT (alternative to jennifer for traveling) Side left Resistance AAROM Reps/Minutes 3 reps, 20 SH Comments tactile cue no UT, L shld isometric walk out IR & ER Standing Exercise Name trialed in PT- added to HEP Side left Resistance TB #1 peach Equipment Used towel vs no towel- same Reps/Minutes 5 step outs Comments cued tall posture, elbow at side-pnfree Manual Therapy Treatment Other Other Manual Treatments R SIdelying: L shld deltoid, supraspinatus, bicep, AC PA improved ROM OH ABD with cues serratus press and Humeral ER no pinch feeling. PT-OP-T Assessment and Plan Start: 02/03/24 08:50 Freq: Status: Active Protocol: Document 03/01/24 09:47 SP (Rec: 03/01/24 10:31 SP [id number]) Physical Therapy Assessment Goals 3 Impairment Lack of HEP Impairment . Halfway Goal (LTG) Pt will perform progressive HEP with I including postural, alignment, flexibility, strengthening and balance exercises to improve pain, range and strength. 03/01/24: noodle exercises with dowel assist and jennifer at home. LTG Duration 10 weeks progressing 03/01/24 2 Impairment Decreased left shoulder ROM Impairment . Client Services Administrator Goal (LTG) Pt will present with left shoulder flexion and abduction to at least 160 deg to improve functional use of arm with over tasks. 02/25/24: Supine: LUE AAROM /c DOwel: FF 148*, ABD 103* 03/01/24: stand:L FF 127*, 105*, ER 45* (elbow at side), IR hand over full sacrum fingers over R pelvis. LTG Duration 10 weeks progresing 03/01/24 1 Impairment QuickDASH reflects 25% impairment Impairment . Client Services Administrator Goal (LTG) Pt will present with QuickDASH score reflecting no more than 5% impairment to improve ADLs and IADLs. LTG Duration 10 weeks Assessment Summary Assessment Pt making gains in ROM. Showed alternative of pulleys standing wall walking due to going out of town and not bringing all equipement, can use rolled blanket on floor substitute foam roller for short period time. Improved ROM and form sidelying AROM LUE so added to HEP and initiated IR&ER isometric walk outs with HO provided. CUes for scap glide down and retraction and humeral ER during sidelying reduction UT recruitment. She reports L arm tiring with sidelying ex less tension into deltoid post manual and better with cues humeral serratus press and ER needed. Physical Therapy Plan Frequency and Duration Frequency of Treatment 1-2/wk Duration of treatment (weeks) 10 Plan of Care Start Date 02/04/24 Plan of Care End Date 04/23/24 Therapeutic Interventions Therapeutic Interventions Balance Training,Canalithic Repositioning,Home Exercise Program,Joint Mobilizations, Manual Therapy,Neuromuscular Re-education,Patient/Caregiver Education,Self-Care/Home Management,Soft Tissue Mobilization,Taping, Therapeutic Activities, Therapeutic Exercises, Vestibular Rehabilitation Modalities Cold Pack/Ice Massage,Electric Stimulation,Hot Packs, Ultrasound Other Referrals/Consults Referrals/Consults Recommended Orthopedic consult, PCP to check hormone panel Next Visit Focus/Plan Next Note Type Treatment Note Next Visit Plan Check foam roller ex /c dowel, added sidelying abd & open book & isometric IR&ER walk out. POC: Manual work, consider holding band in neutral at side, scapular retraction with band in standing Manual work including [place] Protocol
--- NOTE | 2024-03-03 08:37 | PT.OTN ---
Current Diagnoses Other enthesopathies, not elsewhere classified (03/03/24) Dizziness and giddiness (03/03/24) Physical Therapy Treatment Note PT-OP-A Visit Information Start: 02/03/24 08:50 Freq: Status: Active Protocol: Document 03/03/24 07:30 MB (Rec: 03/03/24 08:36 MB [id number]) Out-Patient Physical Therapy Visit Information Visit Information Visit Type Progress Note Visit Note [employer], Self-care Visit Start Time 07:30 Visit Stop Time 08:27 Visit Number 6 Number of PHILOSOPHY PROFESSOR Visits 0 Evaluation Information Evaluation Date 02/04/24 Precautions Precautions History of BPPV PT-OP-B Current Condition Start: 02/03/24 08:50 Freq: Status: Active Protocol: Document 02/04/24 14:31 MB (Rec: 02/04/24 15:49 MB [id number]) Current Condition History of Current Condition Onset Date 4 months Current Complaints Left shoulder pain History of Current Condition 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 She would like to establish care and have access to someone who can treat her if needed. She currently does not have this. Pt reports gradual onset of left shoulder pain. She walks her dog who is a puller and a yanker. She asks about getting a animal trainer after PT. She sleeps on her back d/t lumbar transverse process fractures from the past. She points to B pelvic areas near sacrum. She puts a pillow under her left arm with sleeping. Occ she has pain down the arm and she notices it more at night time. Pt is right handed. She is retired. She only gardens at home. [place] of her parents 12-14 days out of every month. Driving is tiring. Prior Treatments and Tests Left shoulder x-ray is negative Treatment Goals Patient/Caregiver Goals To improve ROM and strength of left arm PT-OP-C Subjective Start: 02/03/24 08:50 Freq: Status: Active Protocol: Document 03/03/24 07:30 MB (Rec: 03/03/24 08:36 MB [id number]) OP-PT Subjective Patient Comments Patient Comments Pt states that she is heading up to go fishing with her grand-daughter. Pt states that she is doing well. After doing her exercises now, she does not hurt as much. PT-OP-J Posture/Palpation/Skin Start: 02/03/24 08:50 Freq: Status: Active Protocol: Document 02/04/24 14:31 MB (Rec: 02/04/24 15:49 MB [id number]) Posture Evaluation Comments Posture Comments Flat thoracic spine proximally , rounded shoulders, right scapula is lower than the left , mid thoracic spine, mild convexity to the left and ribs more pronounced posterior on lower left area, increased supination left foot and increased pronation right foot , history of left ankle fracture. Posteriorly, B pelvis is grossly level and left shoulder is mildly higher than the right. PT-OP-K Range of Motion Start: 02/03/24 08:50 Freq: Status: Active Protocol: Document 02/04/24 14:31 MB (Rec: 02/04/24 15:49 MB [id number]) Cervical Spine Range of Motion Cervical Spine Active Testing Position Standing Comments Functional neck movement with slight decreased left rotation Thoracic rotation B with left 10% less than the right Shoulder Goniometric Range of Motion Shoulder Left Shoulder ROM WFL No Testing Position Standing/supine Flexion 115 Abduction 100 Internal Rotation Behind Back (text) S2 Comments Supine PROM for ER and IR: pt cannot get to 90 deg passive abduction and there is a hard end-feel around 65 deg and pt has apprehension and discomfort. ER at this angle is 5 deg and IR is 15 deg Right Shoulder ROM WFL Yes Testing Position Standing/supine Flexion 169 Abduction 165 Internal Rotation Behind Back (text) T5 Comments Supine 90/90 passive ER and IR WNLs PT-OP-M Strength Start: 02/04/24 15:50 Freq: Status: Active Protocol: Document 02/04/24 14:31 MB (Rec: 02/04/24 15:51 MB [id number]) Shoulder Strength Shoulder Manual Muscle Testing Left Comments Did not test d/t pain and limited range Right Flexion 5 Normal Abduction (C5) 5 Normal External Rotation 4+ Good+ Internal Rotation 4+ Good+ Elbow/Forearm Strength Elbow and Forearm Manual Muscle Testing Left Flexion (C6) 5 Normal Extension (C7) 4+ Good+ Right Flexion (C6) 5 Normal Extension (C7) 5 Normal PT-OP-Q Treatments Start: 02/03/24 08:50 Freq: Status: Active Protocol: Document 03/03/24 07:30 MB (Rec: 03/03/24 08:36 MB [id number]) Therapeutic Exercises Sidelying Exercises abduction Comments 5 reps left UE with two pillows under head and range to grossly 90 deg open book Comments 2 reps left side to review and cues to keep legs together/ don't move below Standing Exercises Shoulder ER Equipment Used Bibb band, latex free Reps/Minutes At least 10 reps Comments Elbow at side and cue for hitch hiker hand Scapular retraction Equipment Used Bibb band, latex free Reps/Minutes At least 10 reps Comments Better with elbows straight and not bent Other Exercises self STMs Comments Intrascapular and infraspinatus MWM, many minutes, cues for form Manual Therapy Treatment Consent Patient gave verbal consent for manual Yes treatment Other Other Manual Treatments Pt prone: grade II-III PA mobs spinous processes and ribs/ thoracic spine, scapular mobs, STM B upper traps and left ERs PT-OP-T Assessment and Plan Start: 02/03/24 08:50 Freq: Status: Active Protocol: Document 03/03/24 07:30 MB (Rec: 03/03/24 08:36 MB [id number]) Physical Therapy Assessment Goals 3 Impairment Lack of HEP Impairment . Senior Living Goal (LTG) Pt will perform progressive HEP with I including postural, alignment, flexibility, strengthening and balance exercises to improve pain, range and strength. 03/03/24: Pt is performing all exercises and she likes the bigger poool noodle, bicycling with the pulleys, range of motion exercises with cane, open book, standing ER and IR with arm at side in neutral LTG Duration 10 weeks 2 Impairment Decreased left shoulder ROM Impairment . Massage Operator Goal (LTG) Pt will present with left shoulder flexion and abduction to at least 160 deg to improve functional use of arm with over tasks. 02/25/24: Supine: LUE AAROM /c DOwel: FF 148*, ABD 103* 03/01/24: stand:L FF 127*, 105*, ER 45* (elbow at side), IR hand over full sacrum fingers over R pelvis. 03/03/24: Standing AROM, flexion right to 156 deg and left 130 deg; abduction right 160 deg and left 132 deg LTG Duration 10 weeks 1 Impairment QuickDASH reflects 25% impairment Impairment . Senior Living Goal (LTG) Pt will present with QuickDASH score reflecting no more than 5% impairment to improve ADLs and IADLs. 03/03/24: QuickDASH score reflects 38.63% impairment and pt reports she is much better and her arm is moving more. LTG Duration 10 weeks Assessment Summary Assessment Pt is progressing towards HEP, range and symptom reports. Her QuickDASH score has not improved but pt states that she doesn't know why because she is better. Overall, range and exercise performance is better. She will benefit from ongoing PT to progress range, posture and pain. Physical Therapy Plan Frequency and Duration Frequency of Treatment 1-2/wk Duration of treatment (weeks) 10 Plan of Care Start Date 02/04/24 Plan of Care End Date 04/23/24 Therapeutic Interventions Therapeutic Interventions Balance Training,Canalithic Repositioning,Home Exercise Program,Joint Mobilizations, Manual Therapy,Neuromuscular Re-education,Patient/Caregiver Education,Self-Care/Home Management,Soft Tissue Mobilization,Taping, Therapeutic Activities, Therapeutic Exercises, Vestibular Rehabilitation Modalities Cold Pack/Ice Massage,Electric Stimulation,Hot Packs, Ultrasound Other Referrals/Consults Referrals/Consults Recommended Orthopedic consult, PCP to check hormone panel Next Visit Focus/Plan Next Note Type Treatment Note Next Visit Plan Consider [place] Protocol, con't progress IR strengthening in standing with band, over the door scapular hold with elbow extension strengthening, con't progression over foam roller if pt tolerates
--- NOTE | 2024-03-17 07:24 | PT-OP ANOTE ---
Pt cancelled today and previous 3 appts since 03/03 last attended appt. Was out of town and now back needs to take care of her mother unable to leave alone. Next scheduled appt 03/22.
--- NOTE | 2024-03-22 09:41 | PT.OTN ---
Current Diagnoses Other enthesopathies, not elsewhere classified (03/22/24) Dizziness and giddiness (03/22/24) Physical Therapy Treatment Note PT-OP-A Visit Information Start: 02/03/24 08:50 Freq: Status: Active Protocol: Document 03/22/24 09:00 MB (Rec: 03/22/24 09:40 MB [id number]) Out-Patient Physical Therapy Visit Information Visit Information Visit Type Progress Note Visit Note [employer], Self-Care Visit Start Time 09:00 Visit Stop Time 09:40 Visit Number 7 Number of [place] [employer]OR[employer] Visits 0 Evaluation Information Evaluation Date 02/04/24 Precautions Precautions History of BPPV PT-OP-B Current Condition Start: 02/03/24 08:50 Freq: Status: Active Protocol: Document 02/04/24 14:31 MB (Rec: 02/04/24 15:49 MB [id number]) Current Condition History of Current Condition Onset Date 4 months Current Complaints Left shoulder pain History of Current Condition 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 She would like to establish care and have access to someone who can treat her if needed. She currently does not have this. Pt reports gradual onset of left shoulder pain. She walks her dog who is a puller and a yanker. She asks about getting a personal secretary after PT. She sleeps on her back d/t lumbar transverse process fractures from the past. She points to B pelvic areas near sacrum. She puts a pillow under her left arm with sleeping. Occ she has pain down the arm and she notices it more at night time. Pt is right handed. She is retired. She only gardens at home. [place] care of her parents 12-14 days out of every month. Driving is tiring. Prior Treatments and Tests Left shoulder x-ray is negative Treatment Goals Patient/Caregiver Goals To improve ROM and strength of left arm PT-OP-C Subjective Start: 02/03/24 08:50 Freq: Status: Active Protocol: Document 03/22/24 09:00 MB (Rec: 03/22/24 09:40 MB [id number]) OP-PT Subjective Patient Comments Patient Comments Pt states that she has been looking after her mother who she has brought to her home d/ t mother's memory challenges. She took her mother back to her home. She is sleeping better and her shoulder is feeling better overall. She wondering if we should d/c. PT-OP-J Posture/Palpation/Skin Start: 02/03/24 08:50 Freq: Status: Active Protocol: Document 02/04/24 14:31 MB (Rec: 02/04/24 15:49 MB [id number]) Posture Evaluation Comments Posture Comments Flat thoracic spine proximally , rounded shoulders, right scapula is lower than the left , mid thoracic spine, mild convexity to the left and ribs more pronounced posterior on lower left area, increased supination left foot and increased pronation right foot , history of left ankle fracture. Posteriorly, B pelvis is grossly level and left shoulder is mildly higher than the right. PT-OP-K Range of Motion Start: 02/03/24 08:50 Freq: Status: Active Protocol: Document 02/04/24 14:31 MB (Rec: 02/04/24 15:49 MB [id number]) Cervical Spine Range of Motion Cervical Spine Active Testing Position Standing Comments Functional neck movement with slight decreased left rotation Thoracic rotation B with left 10% less than the right Shoulder Goniometric Range of Motion Shoulder Left Shoulder ROM WFL No Testing Position Standing/supine Flexion 115 Abduction 100 Internal Rotation Behind Back (text) S2 Comments Supine PROM for ER and IR: pt cannot get to 90 deg passive abduction and there is a hard end-feel around 65 deg and pt has apprehension and discomfort. ER at this angle is 5 deg and IR is 15 deg Right Shoulder ROM WFL Yes Testing Position Standing/supine Flexion 169 Abduction 165 Internal Rotation Behind Back (text) T5 Comments Supine 90/90 passive ER and IR WNLs PT-OP-M Strength Start: 02/04/24 15:50 Freq: Status: Active Protocol: Document 02/04/24 14:31 MB (Rec: 02/04/24 15:51 MB [id number]) Shoulder Strength Shoulder Manual Muscle Testing Left Comments Did not test d/t pain and limited range Right Flexion 5 Normal Abduction (C5) 5 Normal External Rotation 4+ Good+ Internal Rotation 4+ Good+ Elbow/Forearm Strength Elbow and Forearm Manual Muscle Testing Left Flexion (C6) 5 Normal Extension (C7) 4+ Good+ Right Flexion (C6) 5 Normal Extension (C7) 5 Normal PT-OP-Q Treatments Start: 02/03/24 08:50 Freq: Status: Active Protocol: Document 03/22/24 09:00 MB (Rec: 03/22/24 09:40 [id number]) Cardio Equipment Upper Body Ergometer (UBE) Duration (Minutes) 10 Other 1 minute forward and 1 minute backwards Therapeutic Exercises Supine Exercises Foam roller exercises Supine Exercise Name Cane flexion x10 and pect stretch Comments Performed right now Standing Exercises Shoulder IR Resistance Beaufort band, latex free Reps/Minutes At least 10 reps Comments Cues for form AROM shoulders Comments Performed today and see goals for readings Shoulder ER Equipment Used Beaufort band, latex free Reps/Minutes At least 10 reps Comments Elbow at side and cue for hitch hiker hand Scapular retraction Equipment Used Beau[place] band, latex free Reps/Minutes At least 10 reps Comments Better with elbows straight and not bent Other Exercises Review of some of her previous exercises Comments Plank arms straight and sidelying abd and plank okay self STMs Comments Jim cat for infraspinatus today PT-OP-T Assessment and Plan Start: 02/03/24 08:50 Freq: Status: Active Protocol: Document 03/22/24 09:00 MB (Rec: 03/22/24 09:40 [id number]) Physical Therapy Assessment Goals 3 Impairment Lack of HEP Impairment . Usp Goal (LTG) Pt will perform progressive HEP with I including postural, alignment, flexibility, strengthening and balance exercises to improve pain, range and strength. 03/03/24: Pt is performing all exercises and she likes the bigger poool noodle, bicycling with the pulleys, range of motion exercises with cane, open book, standing ER and IR with arm at side in neutral 03/22/24: Pt is performing HEP and circulates through various exercises LTG Duration 10 weeks 2 Impairment Decreased left shoulder ROM Impairment . Usp Goal (LTG) Pt will present with left shoulder flexion and abduction to at least 160 deg to improve functional use of arm with over tasks. 02/25/24: Supine: LUMarianna LEDEZMA /elisha Ghotrael: FF 148*, ABD 103* 03/01/24: stand:L FF 127*, 105*, ER 45* (elbow at side), IR hand over full sacrum fingers over R pelvis. 03/03/24: Standing AROM, flexion right to 156 deg and left 130 deg; abduction right 160 deg and left 132 deg 03/22/24: Standing AROM flexion right: 176 deg and left 150 deg; abduction: right 175 deg and left 150 deg LTG Duration 10 weeks 1 Impairment QuickDASH reflects 25% impairment Impairment . Hot Plate Plywood Press Operator Goal (LTG) Pt will present with QuickDASH score reflecting no more than 5% impairment to improve ADLs and IADLs. 03/03/24: QuickDASH score reflects 38.63% impairment and pt reports she is much better and her arm is moving more. 03/22/24: QuickDASH score reflects 13.63% improvement LTG Duration 10 weeks Assessment Summary Assessment Pt has made improvements towards all PT goals. She has three more treatments and would like to con't with these and then hopes to d/c. While her left shoulder range is better, it is not normal. Physical Therapy Plan Frequency and Duration Frequency of Treatment 1-2/wk Duration of treatment (weeks) 10 Plan of Care Start Date 02/04/24 Plan of Care End Date 04/23/24 Therapeutic Interventions Therapeutic Interventions Balance Training,Canalithic Repositioning,Home Exercise Program,Joint Mobilizations, Manual Therapy,Neuromuscular Re-education,Patient/Caregiver Education,Self-Care/Home Management,Soft Tissue Mobilization,Taping, Therapeutic Activities, Therapeutic Exercises, Vestibular Rehabilitation Modalities Cold Pack/Ice Massage,Electric Stimulation,Hot Packs, Ultrasound Other Referrals/Consults Referrals/Consults Recommended Orthopedic consult, PCP to check hormone panel Next Visit Focus/Plan Next Note Type Treatment Note Next Visit Plan Consider [place] Protocol, con't progress IR strengthening in standing with band, over the door scapular hold with elbow extension strengthening, con't progression over foam roller if pt tolerates
--- NOTE | 2024-03-24 09:44 | PT.OTN ---
Current Diagnoses Other enthesopathies, not elsewhere classified (03/24/24) Dizziness and giddiness (03/24/24) Physical Therapy Treatment Note PT-OP-A Visit Information Start: 02/03/24 08:50 Freq: Status: Active Protocol: Document 03/24/24 09:05 MB (Rec: 03/24/24 09:43 MB [id number]) Out-Patient Physical Therapy Visit Information Visit Information Visit Type Treatment Note Visit Note [employer], Self-Care Visit Start Time 09:05 Visit Stop Time 09:45 Visit Number 8 Number of TAB CUTTER Visits 0 Evaluation Information Evaluation Date 02/04/24 Precautions Precautions History of BPPV PT-OP-B Current Condition Start: 02/03/24 08:50 Freq: Status: Active Protocol: Document 02/04/24 14:31 MB (Rec: 02/04/24 15:49 MB [id number]) Current Condition History of Current Condition Onset Date 4 months Current Complaints Left shoulder pain History of Current Condition 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 She would like to establish care and have access to someone who can treat her if needed. She currently does not have this. Pt reports gradual onset of left shoulder pain. She walks her dog who is a puller and a yanker. She asks about getting a personal property assessor after PT. She sleeps on her back d/t lumbar transverse process fractures from the past. She points to B pelvic areas near sacrum. She puts a pillow under her left arm with sleeping. Occ she has pain down the arm and she notices it more at night time. Pt is right handed. She is retired. She only gardens at home. [place] of her parents 12-14 days out of every month. Driving is tiring. Prior Treatments and Tests Left shoulder x-ray is negative Treatment Goals Patient/Caregiver Goals To improve ROM and strength of left arm PT-OP-C Subjective Start: 02/03/24 08:50 Freq: Status: Active Protocol: Document 03/24/24 09:05 MB (Rec: 03/24/24 09:43 MB [id number]) OP-PT Subjective Patient Comments Patient Comments Pt is doing okay and she would like to take a photo of the foam roller. PT-OP-J Posture/Palpation/Skin Start: 02/03/24 08:50 Freq: Status: Active Protocol: Document 02/04/24 14:31 MB (Rec: 02/04/24 15:49 MB [id number]) Posture Evaluation Comments Posture Comments Flat thoracic spine proximally , rounded shoulders, right scapula is lower than the left , mid thoracic spine, mild convexity to the left and ribs more pronounced posterior on lower left area, increased supination left foot and increased pronation right foot , history of left ankle fracture. Posteriorly, B pelvis is grossly level and left shoulder is mildly higher than the right. PT-OP-K Range of Motion Start: 02/03/24 08:50 Freq: Status: Active Protocol: Document 02/04/24 14:31 MB (Rec: 02/04/24 15:49 MB [id number]) Cervical Spine Range of Motion Cervical Spine Active Testing Position Standing Comments Functional neck movement with slight decreased left rotation Thoracic rotation B with left 10% less than the right Shoulder Goniometric Range of Motion Shoulder Left Shoulder ROM WFL No Testing Position Standing/supine Flexion 115 Abduction 100 Internal Rotation Behind Back (text) S2 Comments Supine PROM for ER and IR: pt cannot get to 90 deg passive abduction and there is a hard end-feel around 65 deg and pt has apprehension and discomfort. ER at this angle is 5 deg and IR is 15 deg Right Shoulder ROM WFL Yes Testing Position Standing/supine Flexion 169 Abduction 165 Internal Rotation Behind Back (text) T5 Comments Supine 90/90 passive ER and IR WNLs PT-OP-M Strength Start: 02/04/24 15:50 Freq: Status: Active Protocol: Document 02/04/24 14:31 MB (Rec: 02/04/24 15:51 MB [id number]) Shoulder Strength Shoulder Manual Muscle Testing Left Comments Did not test d/t pain and limited range Right Flexion 5 Normal Abduction (C5) 5 Normal External Rotation 4+ Good+ Internal Rotation 4+ Good+ Elbow/Forearm Strength Elbow and Forearm Manual Muscle Testing Left Flexion (C6) 5 Normal Extension (C7) 4+ Good+ Right Flexion (C6) 5 Normal Extension (C7) 5 Normal PT-OP-Q Treatments Start: 02/03/24 08:50 Freq: Status: Active Protocol: Document 03/24/24 09:05 MB (Rec: 03/24/24 09:43 MB [id number]) Cardio Equipment Upper Body Ergometer (UBE) Duration (Minutes) 10 Other 1 minute forward and 1 minute backwards Therapeutic Exercises Supine Exercises Foam roller exercises Comments Performed exercises for review today, pt likes APRI roller Manual Therapy Treatment Consent Patient gave verbal consent for manual Yes treatment Other Other Manual Treatments Pt supine: PA cervical mobs grade II-III, first rib grade II mobs, STM B upper traps, left infraspinatus and rhomboids, scalenes, left pects, AP grade II mobs left shoulder with ER PT-OP-T Assessment and Plan Start: 02/03/24 08:50 Freq: Status: Active Protocol: Document 03/24/24 09:05 MB (Rec: 03/24/24 09:43 MB [id number]) Physical Therapy Assessment Goals 3 Impairment Lack of HEP Impairment . Finishing Wire Sawyer Goal (LTG) Pt will perform progressive HEP with I including postural, alignment, flexibility, strengthening and balance exercises to improve pain, range and strength. 03/03/24: Pt is performing all exercises and she likes the bigger poool noodle, bicycling with the pulleys, range of motion exercises with cane, open book, standing ER and IR with arm at side in neutral 03/22/24: Pt is performing HEP and circulates through various exercises LTG Duration 8 weeks 2 Impairment Decreased left shoulder ROM Impairment . Skilled Nursing Goal (LTG) Pt will present with left shoulder flexion and abduction to at least 160 deg to improve functional use of arm with over tasks. 02/25/24: Supine: SHAYYMarianna BRISA /elisha DOwel: FF 148*, ABD 103* 03/01/24: stand:L FF 127*, 105*, ER 45* (elbow at side), IR hand over full sacrum fingers over R pelvis. 03/03/24: Standing AROM, flexion right to 156 deg and left 130 deg; abduction right 160 deg and left 132 deg 03/22/24: Standing AROM flexion right: 176 deg and left 150 deg; abduction: right 175 deg and left 150 deg LTG Duration 8 weeks 1 Impairment QuickDASH reflects 25% impairment Impairment . Skilled Nursing Goal (LTG) Pt will present with QuickDASH score reflecting no more than 5% impairment to improve ADLs and IADLs. 03/03/24: QuickDASH score reflects 38.63% impairment and pt reports she is much better and her arm is moving more. 03/22/24: QuickDASH score reflects 13.63% improvement LTG Duration 8 weeks Assessment Summary Assessment Initiated AP mobs today and pt is quite apprehensive, con't to try to mob left shoulder as pt tolerates. Pt's left scapula is elevated and forwad and medial superior scapula border is very prominent and easy to palpate in supine. Physical Therapy Plan Frequency and Duration Frequency of Treatment 1-2/wk Duration of treatment (weeks) 8 Plan of Care Start Date 03/24/24 Plan of Care End Date 05/24/24 Therapeutic Interventions Therapeutic Interventions Balance Training,Canalithic Repositioning,Home Exercise Program,Joint Mobilizations, Manual Therapy,Neuromuscular Re-education,Patient/Caregiver Education,Self-Care/Home Management,Soft Tissue Mobilization,Taping, Therapeutic Activities, Therapeutic Exercises, Vestibular Rehabilitation Modalities Cold Pack/Ice Massage,Electric Stimulation,Hot Packs, Ultrasound Other Referrals/Consults Referrals/Consults Recommended Orthopedic consult, PCP to check hormone panel Next Visit Focus/Plan Next Note Type Treatment Note Next Visit Plan Manual work with [facility] Protocol, over the door scapular hold with elbow extension strengthening, con't progression over foam roller if pt tolerates to include thoracic mobs and band exercises
--- NOTE | 2024-03-24 11:36 | PT.OPPOC ---
Physical, Occupational & Speech Therapy At [facility] Current Diagnoses Other enthesopathies, not elsewhere classified (03/24/24) Dizziness and giddiness (03/24/24) Visit Care Team Role Provider Type Rupali Mehta PA-C Attending Provider Advanced Manager Of Clinical Family Provider Primary Care Provider Referring Provider Specialty: Medical Address: [address] [place] [address], [id number] Email: Plan Of Care PT-OP-B Current Condition Start: 02/03/24 08:50 Freq: Status: Active Protocol: Document 02/04/24 14:31 MB (Rec: 02/04/24 15:49 MB [id number]) Current Condition History of Current Condition Onset Date 4 months Current Complaints Left shoulder pain History of Current Condition 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 She would like to establish care and have access to someone who can treat her if needed. She currently does not have this. Pt reports gradual onset of left shoulder pain. She walks her dog who is a puller and a yanker. 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 She sleeps on her back d/t lumbar transverse process fractures from the past. She points to B pelvic areas near sacrum. She puts a pillow under her left arm with sleeping. Occ she has pain down the arm and she notices it more at night time. Pt is right handed. She is retired. She only gardens at home. [place] of her parents 12-14 days out of every month. Driving is tiring. Prior Treatments and Tests Left shoulder x-ray is negative Treatment Goals Patient/Caregiver Goals To improve ROM and strength of left arm PT-OP-T Assessment and Plan Start: 02/03/24 08:50 Freq: Status: Active Protocol: Document 03/24/24 09:05 MB (Rec: 03/24/24 09:43 MB [id number]) Physical Therapy Assessment Goals 3 Impairment Lack of HEP Impairment . Counter Installer Goal (LTG) Pt will perform progressive HEP with I including postural, alignment, flexibility, strengthening and balance exercises to improve pain, range and strength. 03/03/24: Pt is performing all exercises and she likes the bigger poool noodle, bicycling with the pulleys, range of motion exercises with cane, open book, standing ER and IR with arm at side in neutral 03/22/24: Pt is performing HEP and circulates through various exercises LTG Duration 8 weeks 2 Impairment Decreased left shoulder ROM Impairment . Detention Goal (LTG) Pt will present with left shoulder flexion and abduction to at least 160 deg to improve functional use of arm with over tasks. 02/25/24: Supine: LUE AAROM /c DOwel: FF 148*, ABD 103* 03/01/24: stand:L FF 127*, 105*, ER 45* (elbow at side), IR hand over full sacrum fingers over R pelvis. 03/03/24: Standing AROM, flexion right to 156 deg and left 130 deg; abduction right 160 deg and left 132 deg 03/22/24: Standing AROM flexion right: 176 deg and left 150 deg; abduction: right 175 deg and left 150 deg LTG Duration 8 weeks 1 Impairment QuickDASH reflects 25% impairment Impairment . Counter Installer Goal (LTG) Pt will present with QuickDASH score reflecting no more than 5% impairment to improve ADLs and IADLs. 03/03/24: QuickDASH score reflects 38.63% impairment and pt reports she is much better and her arm is moving more. 03/22/24: QuickDASH score reflects 13.63% improvement LTG Duration 8 weeks Assessment Summary Assessment Initiated AP mobs today and pt is quite apprehensive, con't to try to mob left shoulder as pt tolerates. Pt's left scapula is elevated and forwad and medial superior scapula border is very prominent and easy to palpate in supine. Physical Therapy Plan Frequency and Duration Frequency of Treatment 1-2/wk Duration of treatment (weeks) 8 Plan of Care Start Date 03/24/24 Plan of Care End Date 05/24/24 Therapeutic Interventions Therapeutic Interventions Balance Training,Canalithic Repositioning,Home Exercise Program,Joint Mobilizations, Manual Therapy,Neuromuscular Re-education,Patient/Caregiver Education,Self-Care/Home Management,Soft Tissue Mobilization,Taping, Therapeutic Activities, Therapeutic Exercises, Vestibular Rehabilitation Modalities Cold Pack/Ice Massage,Electric Stimulation,Hot Packs, Ultrasound Other Referrals/Consults Referrals/Consults Recommended Orthopedic consult, PCP to check hormone panel Next Visit Focus/Plan Next Note Type Treatment Note Next Visit Plan Manual work with [place] Protocol, over the door scapular hold with elbow extension strengthening, con't progression over foam roller if pt tolerates to include thoracic mobs and band exercises Plan of Care Dates Plan of Care Start Date 03/24/24 Plan of Care End Date 05/24/24 Electronically Signed by: Chapis Marmolejo, PT 03/24/24 9522 If you are in agreement with this Plan of Care, please return a signed and dated copy. I have reviewed this Plan of Care and certify that the skilled therapy services above are required to meet the patient?s needs. Physician Signature Date Printed Name and Credentials Clinical Instructor Signature Printed Name and Credentials
--- NOTE | 2024-03-29 09:45 | PT.OTN ---
Current Diagnoses Other enthesopathies, not elsewhere classified (03/29/24) Dizziness and giddiness (03/29/24) Physical Therapy Treatment Note PT-OP-A Visit Information Start: 02/03/24 08:50 Freq: Status: Active Protocol: Document 03/29/24 09:05 MB (Rec: 03/29/24 09:42 MB [id number]) Out-Patient Physical Therapy Visit Information Visit Information Visit Type Treatment Note Visit Note [employer], Self-Care Visit Start Time 09:05 Visit Stop Time 09:45 Visit Number 9 Number of MUSIC JOURNALIST Visits 0 Evaluation Information Evaluation Date 02/04/24 Precautions Precautions History of BPPV PT-OP-B Current Condition Start: 02/03/24 08:50 Freq: Status: Active Protocol: Document 02/04/24 14:31 MB (Rec: 02/04/24 15:49 MB [id number]) Current Condition History of Current Condition Onset Date 4 months Current Complaints Left shoulder pain History of Current Condition 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 She would like to establish care and have access to someone who can treat her if needed. She currently does not have this. Pt reports gradual onset of left shoulder pain. She walks her dog who is a puller and a yanker. She asks about getting a personal banking assistant after PT. She sleeps on her back d/t lumbar transverse process fractures from the past. She points to B pelvic areas near sacrum. She puts a pillow under her left arm with sleeping. Occ she has pain down the arm and she notices it more at night time. Pt is right handed. She is retired. She only gardens at home. [place] parents 12-14 days out of every month. Driving is tiring. Prior Treatments and Tests Left shoulder x-ray is negative Treatment Goals Patient/Caregiver Goals To improve ROM and strength of left arm PT-OP-C Subjective Start: 02/03/24 08:50 Freq: Status: Active Protocol: Document 03/29/24 09:05 MB (Rec: 03/29/24 09:42 MB [id number]) OP-PT Subjective Patient Comments Patient Comments Pt states that she has been very busy with guests. The arm going out to the side is still trying. PT-OP-J Posture/Palpation/Skin Start: 02/03/24 08:50 Freq: Status: Active Protocol: Document 02/04/24 14:31 MB (Rec: 02/04/24 15:49 MB [id number]) Posture Evaluation Comments Posture Comments Flat thoracic spine proximally , rounded shoulders, right scapula is lower than the left , mid thoracic spine, mild convexity to the left and ribs more pronounced posterior on lower left area, increased supination left foot and increased pronation right foot , history of left ankle fracture. Posteriorly, B pelvis is grossly level and left shoulder is mildly higher than the right. PT-OP-K Range of Motion Start: 02/03/24 08:50 Freq: Status: Active Protocol: Document 02/04/24 14:31 MB (Rec: 02/04/24 15:49 MB [id number]) Cervical Spine Range of Motion Cervical Spine Active Testing Position Standing Comments Functional neck movement with slight decreased left rotation Thoracic rotation B with left 10% less than the right Shoulder Goniometric Range of Motion Shoulder Left Shoulder ROM WFL No Testing Position Standing/supine Flexion 115 Abduction 100 Internal Rotation Behind Back (text) S2 Comments Supine PROM for ER and IR: pt cannot get to 90 deg passive abduction and there is a hard end-feel around 65 deg and pt has apprehension and discomfort. ER at this angle is 5 deg and IR is 15 deg Right Shoulder ROM WFL Yes Testing Position Standing/supine Flexion 169 Abduction 165 Internal Rotation Behind Back (text) T5 Comments Supine 90/90 passive ER and IR WNLs PT-OP-M Strength Start: 02/04/24 15:50 Freq: Status: Active Protocol: Document 02/04/24 14:31 MB (Rec: 02/04/24 15:51 MB [id number]) Shoulder Strength Shoulder Manual Muscle Testing Left Comments Did not test d/t pain and limited range Right Flexion 5 Normal Abduction (C5) 5 Normal External Rotation 4+ Good+ Internal Rotation 4+ Good+ Elbow/Forearm Strength Elbow and Forearm Manual Muscle Testing Left Flexion (C6) 5 Normal Extension (C7) 4+ Good+ Right Flexion (C6) 5 Normal Extension (C7) 5 Normal PT-OP-Q Treatments Start: 02/03/24 08:50 Freq: Status: Active Protocol: Document 03/29/24 09:05 MB (Rec: 03/29/24 09:42 MB [id number]) Cardio Equipment Upper Body Ergometer (UBE) Duration (Minutes) 10 Other 1 minute forward and 1 minute backwards Therapeutic Exercises Supine Exercises Posterior capsule stretch Comments Added for HEP today Other Exercises self STMs Comments Reviewed Jim Cat today Manual Therapy Treatment Consent Patient gave verbal consent for manual Yes treatment Other Other Manual Treatments Pt prone: TrP work left subscapularis and infraspinatus. [place] Protocol and mobs left scapula [place], ER and IR mobs GH joint, SC and AC mobs, pt in various positions and a lot of tightness at posterior GH joint space PT-OP-T Assessment and Plan Start: 02/03/24 08:50 Freq: Status: Active Protocol: Document 03/29/24 09:05 MB (Rec: 03/29/24 09:42 MB [id number]) Physical Therapy Assessment Goals 3 Impairment Lack of HEP Impairment . [facility] Goal (LTG) Pt will perform progressive HEP with I including postural, alignment, flexibility, strengthening and balance exercises to improve pain, range and strength. 03/03/24: Pt is performing all exercises and she likes the bigger poool noodle, bicycling with the pulleys, range of motion exercises with cane, open book, standing ER and IR with arm at side in neutral 03/22/24: Pt is performing HEP and circulates through various exercises LTG Duration 8 weeks 2 Impairment Decreased left shoulder ROM Impairment . Cardiovascular Lab Director Goal (LTG) Pt will present with left shoulder flexion and abduction to at least 160 deg to improve functional use of arm with over tasks. 02/25/24: Supine: MANUELA LEDEZMA /elisha DOwel: FF 148*, ABD 103* 03/01/24: stand:L FF 127*, 105*, ER 45* (elbow at side), IR hand over full sacrum fingers over R pelvis. 03/03/24: Standing AROM, flexion right to 156 deg and left 130 deg; abduction right 160 deg and left 132 deg 03/22/24: Standing AROM flexion right: 176 deg and left 150 deg; abduction: right 175 deg and left 150 deg LTG Duration 8 weeks 1 Impairment QuickDASH reflects 25% impairment Impairment . [facility] Goal (LTG) Pt will present with QuickDASH score reflecting no more than 5% impairment to improve ADLs and IADLs. 03/03/24: QuickDASH score reflects 38.63% impairment and pt reports she is much better and her arm is moving more. 03/22/24: QuickDASH score reflects 13.63% improvement LTG Duration 8 weeks Assessment Summary Assessment More manual work today as far as joint mobs and TrP treatment and pt has lower tolerance to joint mobs. Joint is very stiff posteriorly and pt may benefit from ortho consult/possible injection in this frozen shoulder type presentation. Physical Therapy Plan Frequency and Duration Frequency of Treatment 1-2/wk Duration of treatment (weeks) 8 Plan of Care Start Date 03/24/24 Plan of Care End Date 05/24/24 Therapeutic Interventions Therapeutic Interventions Balance Training,Canalithic Repositioning,Home Exercise Program,Joint Mobilizations, Manual Therapy,Neuromuscular Re-education,Patient/Caregiver Education,Self-Care/Home Management,Soft Tissue Mobilization,Taping, Therapeutic Activities, Therapeutic Exercises, Vestibular Rehabilitation Modalities Cold Pack/Ice Massage,Electric Stimulation,Hot Packs, Ultrasound Other Referrals/Consults Referrals/Consults Recommended Orthopedic consult, PCP to check hormone panel Next Visit Focus/Plan Next Note Type Treatment Note Next Visit Plan Manual work with [place] Protocol, over the door scapular hold with elbow extension strengthening, con't progression over foam roller if pt tolerates to include thoracic mobs and band exercises
--- NOTE | 2024-03-31 09:45 | PT.OTN ---
Current Diagnoses Other enthesopathies, not elsewhere classified (03/31/24) Dizziness and giddiness (03/31/24) Physical Therapy Treatment Note PT-OP-A Visit Information Start: 02/03/24 08:50 Freq: Status: Active Protocol: Document 03/31/24 09:03 MB (Rec: 03/31/24 09:42 MB [id number]) Out-Patient Physical Therapy Visit Information Visit Information Visit Type Treatment Note Visit Note [employer], Self-Care Visit Start Time 09:03 Visit Stop Time 09:43 Visit Number 10 Number of INSPECTOR SEMICONDUCTOR WAFER Visits 0 Evaluation Information Evaluation Date 02/04/24 Precautions Precautions History of BPPV PT-OP-B Current Condition Start: 02/03/24 08:50 Freq: Status: Active Protocol: Document 02/04/24 14:31 MB (Rec: 02/04/24 15:49 MB [id number]) Current Condition History of Current Condition Onset Date 4 months Current Complaints Left shoulder pain History of Current Condition 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 She would like to establish care and have access to someone who can treat her if needed. She currently does not have this. Pt reports gradual onset of left shoulder pain. She walks her dog who is a puller and a yanker. She asks about getting a personal property appraiser after PT. She sleeps on her back d/t lumbar transverse process fractures from the past. She points to B pelvic areas near sacrum. She puts a pillow under her left arm with sleeping. Occ she has pain down the arm and she notices it more at night time. Pt is right handed. She is retired. She only gardens at home. [place] of her parents 12-14 days out of every month. Driving is tiring. Prior Treatments and Tests Left shoulder x-ray is negative Treatment Goals Patient/Caregiver Goals To improve ROM and strength of left arm PT-OP-C Subjective Start: 02/03/24 08:50 Freq: Status: Active Protocol: Document 03/31/24 09:03 MB (Rec: 03/31/24 09:42 MB [id number]) OP-PT Subjective Patient Comments Patient Comments Pt states that she was a little sore after treatment and maybe felt like she had a little more range in her arm the next day. PT-OP-J Posture/Palpation/Skin Start: 02/03/24 08:50 Freq: Status: Active Protocol: Document 02/04/24 14:31 MB (Rec: 02/04/24 15:49 MB [id number]) Posture Evaluation Comments Posture Comments Flat thoracic spine proximally , rounded shoulders, right scapula is lower than the left , mid thoracic spine, mild convexity to the left and ribs more pronounced posterior on lower left area, increased supination left foot and increased pronation right foot , history of left ankle fracture. Posteriorly, B pelvis is grossly level and left shoulder is mildly higher than the right. PT-OP-K Range of Motion Start: 02/03/24 08:50 Freq: Status: Active Protocol: Document 02/04/24 14:31 MB (Rec: 02/04/24 15:49 MB [id number]) Cervical Spine Range of Motion Cervical Spine Active Testing Position Standing Comments Functional neck movement with slight decreased left rotation Thoracic rotation B with left 10% less than the right Shoulder Goniometric Range of Motion Shoulder Left Shoulder ROM WFL No Testing Position Standing/supine Flexion 115 Abduction 100 Internal Rotation Behind Back (text) S2 Comments Supine PROM for ER and IR: pt cannot get to 90 deg passive abduction and there is a hard end-feel around 65 deg and pt has apprehension and discomfort. ER at this angle is 5 deg and IR is 15 deg Right Shoulder ROM WFL Yes Testing Position Standing/supine Flexion 169 Abduction 165 Internal Rotation Behind Back (text) T5 Comments Supine 90/90 passive ER and IR WNLs PT-OP-M Strength Start: 02/04/24 15:50 Freq: Status: Active Protocol: Document 02/04/24 14:31 MB (Rec: 02/04/24 15:51 MB [id number]) Shoulder Strength Shoulder Manual Muscle Testing Left Comments Did not test d/t pain and limited range Right Flexion 5 Normal Abduction (C5) 5 Normal External Rotation 4+ Good+ Internal Rotation 4+ Good+ Elbow/Forearm Strength Elbow and Forearm Manual Muscle Testing Left Flexion (C6) 5 Normal Extension (C7) 4+ Good+ Right Flexion (C6) 5 Normal Extension (C7) 5 Normal PT-OP-Q Treatments Start: 02/03/24 08:50 Freq: Status: Active Protocol: Document 03/31/24 09:03 MB (Rec: 03/31/24 09:42 MB [id number]) Cardio Equipment Upper Body Ergometer (UBE) Duration (Minutes) 10 Other 1 minute forward and 1 minute backwards Therapeutic Exercises Supine Exercises Foam roller exercises Supine Exercise Name Posterior capsule stretch and ER chicken stretch Comments Thoracic mobs perpendicular to roller Manual Therapy Treatment Consent Patient gave verbal consent for manual Yes treatment Other Other Manual Treatments Pt supine: STM and MWM left pect major and minor, grade II -III AP ER mobs left shoulder. ER and IR isometric mobs, resisted and holds, gentle resisted ER and IR with left shoulder. TrP treatment left pect major, STM posterior shoulder muscular from scapula to posterior GH joint PT-OP-T Assessment and Plan Start: 02/03/24 08:50 Freq: Status: Active Protocol: Document 03/31/24 09:03 MB (Rec: 03/31/24 09:42 MB [id number]) Physical Therapy Assessment Goals 3 Impairment Lack of HEP Impairment . Alf Goal (LTG) Pt will perform progressive HEP with I including postural, alignment, flexibility, strengthening and balance exercises to improve pain, range and strength. 03/03/24: Pt is performing all exercises and she likes the bigger poool noodle, bicycling with the pulleys, range of motion exercises with cane, open book, standing ER and IR with arm at side in neutral 03/22/24: Pt is performing HEP and circulates through various exercises LTG Duration 8 weeks 2 Impairment Decreased left shoulder ROM Impairment . Alf Goal (LTG) Pt will present with left shoulder flexion and abduction to at least 160 deg to improve functional use of arm with over tasks. 02/25/24: Supine: MANUELA LEDEZMA /elisha DOwel: FF 148*, ABD 103* 03/01/24: stand:L FF 127*, 105*, ER 45* (elbow at side), IR hand over full sacrum fingers over R pelvis. 03/03/24: Standing AROM, flexion right to 156 deg and left 130 deg; abduction right 160 deg and left 132 deg 03/22/24: Standing AROM flexion right: 176 deg and left 150 deg; abduction: right 175 deg and left 150 deg LTG Duration 8 weeks 1 Impairment QuickDASH reflects 25% impairment Impairment . [employer]ty [employer] Cook Goal (LTG) Pt will present with QuickDASH score reflecting no more than 5% impairment to improve ADLs and IADLs. 03/03/24: QuickDASH score reflects 38.63% impairment and pt reports she is much better and her arm is moving more. 03/22/24: QuickDASH score reflects 13.63% improvement LTG Duration 8 weeks Assessment Summary Assessment Progressed thoracic mobility over foam roller today and shoulder ER on foam roller. Physical Therapy Plan Frequency and Duration Frequency of Treatment 1-2/wk Duration of treatment (weeks) 8 Plan of Care Start Date 03/24/24 Plan of Care End Date 05/24/24 Therapeutic Interventions Therapeutic Interventions Balance Training,Canalithic Repositioning,Home Exercise Program,Joint Mobilizations, Manual Therapy,Neuromuscular Re-education,Patient/Caregiver Education,Self-Care/Home Management,Soft Tissue Mobilization,Taping, Therapeutic Activities, Therapeutic Exercises, Vestibular Rehabilitation Modalities Cold Pack/Ice Massage,Electric Stimulation,Hot Packs, Ultrasound Other Referrals/Consults Referrals/Consults Recommended Orthopedic consult, PCP to check hormone panel Next Visit Focus/Plan Next Note Type Treatment Note Next Visit Plan Consider add traps MWM with racquet ball and pext doorway stretch neck time. Con't manual work with [place] Protocol, over the door scapular hold with elbow extension strengthening, con't progression over foam roller if pt tolerates to include band exercises
--- NOTE | 2024-04-14 11:57 | PT.OTN ---
Addendum entered and electronically signed by Ebony Burks PTA 04/14/24 12:11: Take ER at 45 deg abd next tx. Original Note: Current Diagnoses Other enthesopathies, not elsewhere classified (04/14/24) Dizziness and giddiness (04/14/24) Physical Therapy Treatment Note PT-OP-A Visit Information Start: 02/03/24 08:50 Freq: Status: Active Protocol: Document 04/14/24 11:17 SP (Rec: 04/14/24 12:09 SP [id number]) Out-Patient Physical Therapy Visit Information Visit Information Visit Type Treatment Note Visit Note [facility], Self-Care Progress note 30 days by 04/2210 after PN Visit Start Time 11:17 Visit Stop Time 11:57 Visit Number 11 Number of DATA SPECIALIST Visits 1 Evaluation Information Evaluation Date 02/04/24 Precautions Precautions History of BPPV PT-OP-B Current Condition Start: 02/03/24 08:50 Freq: Status: Active Protocol: Document 02/04/24 14:31 MB (Rec: 02/04/24 15:49 MB [id number]) Current Condition History of Current Condition Onset Date 4 months Current Complaints Left shoulder pain History of Current Condition 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 She would like to establish care and have access to someone who can treat her if needed. She currently does not have this. Pt reports gradual onset of left shoulder pain. She walks her dog who is a puller and a yanker. She asks about getting a personal vehicle advisor after PT. She sleeps on her back d/t lumbar transverse process fractures from the past. She points to B pelvic areas near sacrum. She puts a pillow under her left arm with sleeping. Occ she has pain down the arm and she notices it more at night time. Pt is right handed. She is retired. She only gardens at home. [place] of [place] parents 12-14 days out of every month. Driving is tiring. Prior Treatments and Tests Left shoulder x-ray is negative Treatment Goals Patient/Caregiver Goals To improve ROM and strength of left arm PT-OP-C Subjective Start: 02/03/24 08:50 Freq: Status: Active Protocol: Document 04/14/24 11:17 SP (Rec: 04/14/24 12:09 SP [id number]) OP-PT Subjective Patient Comments Patient Comments Pt reports doing well, no pain , compliant with exercises. I really like the new foam roller exercises Wants to review. She feels she is functionally 85-90% back to return to normal activity and range. She feels can almost be ready to return to HEP and progress own with time. She doesn't have pain reaching to higher cabinet with L shld now and not having to switch use R shld. PT-OP-J Posture/Palpation/Skin Start: 02/03/24 08:50 Freq: Status: Active Protocol: Document 02/04/24 14:31 MB (Rec: 02/04/24 15:49 MB [id number]) Posture Evaluation Comments Posture Comments Flat thoracic spine proximally , rounded shoulders, right scapula is lower than the left , mid thoracic spine, mild convexity to the left and ribs more pronounced posterior on lower left area, increased supination left foot and increased pronation right foot , history of left ankle fracture. Posteriorly, B pelvis is grossly level and left shoulder is mildly higher than the right. PT-OP-K Range of Motion Start: 02/03/24 08:50 Freq: Status: Active Protocol: Document 04/14/24 11:17 SP (Rec: 04/14/24 12:09 SP [id number]) Shoulder Goniometric Range of Motion Shoulder Left Shoulder ROM WFL No Testing Position Standing Flexion 135 Extension 51 Abduction 114 External Rotation at 0 degrees Abduction 65 Internal Rotation Behind Back (text) L3 Comments L AROM standing: FF gain 20 deg 135* ABD gain 14 deg 114* ER 0 deg abd 65 deg IR behind back: S2> L3 Right Shoulder ROM WFL Yes Testing Position Standing Flexion 180 Extension 65 Abduction 180 Internal Rotation Behind Back (text) T4 Comments R shld AROM: WNL 04/14/24- approx 180 deg: gain 10-14 deg IR behind back discomfort resistance not pain PT-OP-M Strength Start: 02/04/24 15:50 Freq: Status: Active Protocol: Document 02/04/24 14:31 MB (Rec: 02/04/24 15:51 MB [id number]) Shoulder Strength Shoulder Manual Muscle Testing Left Comments Did not test d/t pain and limited range Right Flexion 5 Normal Abduction (C5) 5 Normal External Rotation 4+ Good+ Internal Rotation 4+ Good+ Elbow/Forearm Strength Elbow and Forearm Manual Muscle Testing Left Flexion (C6) 5 Normal Extension (C7) 4+ Good+ Right Flexion (C6) 5 Normal Extension (C7) 5 Normal PT-OP-Q Treatments Start: 02/03/24 08:50 Freq: Status: Active Protocol: Document 04/14/24 11:17 SP (Rec: 04/14/24 12:09 SP [id number]) Cardio Equipment Upper Body Ergometer (UBE) Duration (Minutes) 10 RPM 50 Seat Position 10 Height 3 Other 1 minute forward and 1 minute backwards Therapeutic Exercises Supine Exercises Foam roller exercises Supine Exercise Name Posterior capsule stretch and ER chicken stretch Resistance ordering SPRI foam roller Comments Thoracic mobs perpendicular to roller Pect stretch over pool noodle Supine Exercise Name Pec stretch, ER limited LUE Equipment Used foam roller Reps/Minutes 30 sec hold, PEc stretch and ER Comments good knees bent, TA draw in, Other Exercises AROM measurements Other Exercise Name see values taken 04/14/24 Manual Therapy Treatment Consent Patient gave verbal consent for manual Yes treatment Other Other Manual Treatments Pt supine: STM and MWM left pect major and minor, grade II -III AP ER mobs left shoulder. Contraction relax isometric IR hold, then passive ROM tolerant range, continued limitation into open chain. L posterior GH joint. Manual assist supine posterior capsule cross body L GH stretch. PT-OP-T Assessment and Plan Start: 02/03/24 08:50 Freq: Status: Active Protocol: Document 04/14/24 11:17 SP (Rec: 04/14/24 12:09 SP [id number]) Physical Therapy Assessment Goals 3 Impairment Lack of HEP Impairment . Senior Living Goal (LTG) Pt will perform progressive HEP with I including postural, alignment, flexibility, strengthening and balance exercises to improve pain, range and strength. 03/03/24: Pt is performing all exercises and she likes the bigger poool noodle, bicycling with the pulleys, range of motion exercises with cane, open book, standing ER and IR with arm at side in neutral 03/22/24: Pt is performing HEP and circulates through various exercises LTG Duration 8 weeks 2 Impairment Decreased left shoulder ROM Impairment . Senior Living Goal (LTG) Pt will present with left shoulder flexion and abduction to at least 160 deg to improve functional use of arm with over tasks. 02/25/24: Supine: MANUELA LEDEZMA /elisha DOwel: FF 148*, ABD 103* 03/01/24: stand:L FF 127*, 105*, ER 45* (elbow at side), IR hand over full sacrum fingers over R pelvis. 03/03/24: Standing AROM, flexion right to 156 deg and left 130 deg; abduction right 160 deg and left 132 deg 03/22/24: Standing AROM flexion right: 176 deg and left 150 deg; abduction: right 175 deg and left 150 deg 04/14/24: L AROM standing: FF gain 20 deg 135* ABD gain 14 deg 114* ER 0 deg abd 65 deg IR behind back: S2> L3 able to reach higher into cupboards with less pain. LTG Duration 8 weeks progressing 04/14/24 1 Impairment QuickDASH reflects 25% impairment Impairment . Senior Living Goal (LTG) Pt will present with QuickDASH score reflecting no more than 5% impairment to improve ADLs and IADLs. 03/03/24: QuickDASH score reflects 38.63% impairment and pt reports she is much better and her arm is moving more. 03/22/24: QuickDASH score reflects 13.63% improvement LTG Duration 8 weeks Progress Towards Goals Progress Comments R shld AROM: WNL 04/14/24- approx 180 deg: gain 10-14 deg IR behind back discomfort resistance not pain L AROM standing: FF gain 20 deg 135* ABD gain 14 deg 114* ER 0 deg abd 65 deg IR behind back: S2> L3 Assessment Summary Assessment Pt good response to over foam roller ther ex continue progression TS mobility. She is making gains in standing AROM standing but still limited ER into open chain with reports pain. She is wondering if should get consult of orthopedic. Physical Therapy Plan Frequency and Duration Frequency of Treatment 1-2/wk Duration of treatment (weeks) 8 Plan of Care Start Date 03/24/24 Plan of Care End Date 05/24/24 Therapeutic Interventions Therapeutic Interventions Balance Training,Canalithic Repositioning,Home Exercise Program,Joint Mobilizations, Manual Therapy,Neuromuscular Re-education,Patient/Caregiver Education,Self-Care/Home Management,Soft Tissue Mobilization,Taping, Therapeutic Activities, Therapeutic Exercises, Vestibular Rehabilitation Modalities Cold Pack/Ice Massage,Electric Stimulation,Hot Packs, Ultrasound Other Referrals/Consults Referrals/Consults Recommended Orthopedic consult, PCP to check hormone panel Next Visit Focus/Plan Next Note Type Treatment Note Next Visit Plan Next tx: Consider add traps MWM with racquet ball and pext doorway stretch neck time. Con't manual work with [place] Protocol, over the door scapular hold with elbow extension strengthening, con't progression over foam roller if pt tolerates to include band exercises
--- NOTE | 2024-04-16 13:48 | PT.OTN ---
Current Diagnoses Other enthesopathies, not elsewhere classified (04/16/24) Dizziness and giddiness (04/16/24) Physical Therapy Treatment Note PT-OP-A Visit Information Start: 02/03/24 08:50 Freq: Status: Active Protocol: Document 04/16/24 13:02 SP (Rec: 04/16/24 13:51 SP [id number]) Out-Patient Physical Therapy Visit Information Visit Information Visit Type Treatment Note Visit Note [employer], Self-Care Progress note 30 days by 04/22 5/10 after PN Visit Start Time 13:02 Visit Stop Time 13:48 Visit Number 12 Number of DIRECTOR TELEVISION NEWS Visits 2 Evaluation Information Evaluation Date 02/04/24 Precautions Precautions History of BPPV PT-OP-B Current Condition Start: 02/03/24 08:50 Freq: Status: Active Protocol: Document 02/04/24 14:31 MB (Rec: 02/04/24 15:49 MB [id number]) Current Condition History of Current Condition Onset Date 4 months Current Complaints Left shoulder pain History of Current Condition 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 She would like to establish care and have access to someone who can treat her if needed. She currently does not have this. Pt reports gradual onset of left shoulder pain. She walks her dog who is a puller and a yanker. She asks about getting a personal financial representative after PT. She sleeps on her back d/t lumbar transverse process fractures from the past. She points to B pelvic areas near sacrum. She puts a pillow under her left arm with sleeping. Occ she has pain down the arm and she notices it more at night time. Pt is right handed. She is retired. She only gardens at home. [place] of her parents 12-14 days out of every month. Driving is tiring. Prior Treatments and Tests Left shoulder x-ray is negative Treatment Goals Patient/Caregiver Goals To improve ROM and strength of left arm PT-OP-C Subjective Start: 02/03/24 08:50 Freq: Status: Active Protocol: Document 04/16/24 13:02 SP (Rec: 04/16/24 13:51 SP [id number]) OP-PT Subjective Patient Comments Patient Comments Pt reports wants to review standing band Hep uses in the door, foam roller HEP and wants to find way can incorporated UBE assimulation resisted rotational motion for more strengthening at home to progress on own as well. PT-OP-J Posture/Palpation/Skin Start: 02/03/24 08:50 Freq: Status: Active Protocol: Document 02/04/24 14:31 MB (Rec: 02/04/24 15:49 MB [id number]) Posture Evaluation Comments Posture Comments Flat thoracic spine proximally , rounded shoulders, right scapula is lower than the left , mid thoracic spine, mild convexity to the left and ribs more pronounced posterior on lower left area, increased supination left foot and increased pronation right foot , history of left ankle fracture. Posteriorly, B pelvis is grossly level and left shoulder is mildly higher than the right. PT-OP-K Range of Motion Start: 02/03/24 08:50 Freq: Status: Active Protocol: Document 04/14/24 11:17 SP (Rec: 04/14/24 12:09 SP [id number]) Shoulder Goniometric Range of Motion Shoulder Left Shoulder ROM WFL No Testing Position Standing Flexion 135 Extension 51 Abduction 114 External Rotation at 0 degrees Abduction 65 Internal Rotation Behind Back (text) L3 Comments L AROM standing: FF gain 20 deg 135* ABD gain 14 deg 114* ER 0 deg abd 65 deg IR behind back: S2> L3 Right Shoulder ROM WFL Yes Testing Position Standing Flexion 180 Extension 65 Abduction 180 Internal Rotation Behind Back (text) T4 Comments R shld AROM: WNL 04/14/24- approx 180 deg: gain 10-14 deg IR behind back discomfort resistance not pain PT-OP-M Strength Start: 02/04/24 15:50 Freq: Status: Active Protocol: Document 02/04/24 14:31 MB (Rec: 02/04/24 15:51 MB [id number]) Shoulder Strength Shoulder Manual Muscle Testing Left Comments Did not test d/t pain and limited range Right Flexion 5 Normal Abduction (C5) 5 Normal External Rotation 4+ Good+ Internal Rotation 4+ Good+ Elbow/Forearm Strength Elbow and Forearm Manual Muscle Testing Left Flexion (C6) 5 Normal Extension (C7) 4+ Good+ Right Flexion (C6) 5 Normal Extension (C7) 5 Normal PT-OP-Q Treatments Start: 02/03/24 08:50 Freq: Status: Active Protocol: Document 04/16/24 13:02 SP (Rec: 04/16/24 13:51 SP [id number]) Cardio Equipment Upper Body Ergometer (UBE) Duration (Minutes) 10 RPM 50 Seat Position 10 Height 3 Other 1 minute forward and 1 minute backwards Therapeutic Exercises Supine Exercises Foam roller exercises Supine Exercise Name TS ext& rolling, FF, Ws (try Perpend floor), Ts (HABD), 1/2 X, ER, Side bilateral Resistance TB #2 orange FF, Ts, 1/2 X, ER 12 reps 2 SH reps each Equipment Used ordering SPRI softer foam roller Reps/Minutes Thoracic mobs perpendicular to roller ext & rolling Comments good feedback response pnfree, Good TA fac & no LB arch throughout, neutral Pect stretch over pool noodle Supine Exercise Name Pec stretch Side bilateral Equipment Used foam roller Reps/Minutes 30 sec Comments good knees bent, TA draw in, Sitting Exercises Eccentric flexion Sitting Exercise Name trialed in PT with good response, pt asked added to HEP declined HO Side left Resistance TB #4 dark blue anchored high- good eccentric FF Equipment Used mesh chair facing away from wall Reps/Minutes 3 reps, 3 SH Comments Improved ff- pnfree approx 160 deg, cued ed level shld, no UT Standing Exercises Shld ext Standing Exercise Name HEP reviewed Side bilateral Resistance Mcdonald band, latex free Equipment Used towel under arm Reps/Minutes 2x15 Comments cued elbows straight, open chest scap back pocket into ext, and return Shoulder IR Standing Exercise Name HEP reviewed Side bilateral Resistance Mcdonald band, latex free Equipment Used towel under arm Reps/Minutes 2x15 reps Comments cued shld in back pocket con/ ecc Shoulder ER Standing Exercise Name HEP reviewed Side bilateral Resistance Mcdonald band, latex free Equipment Used towel under arm Reps/Minutes 2x15 reps Comments cued shld in back pocket con/ ecc Other Exercises self STMs Other Exercise Name Self UT rolling ball wall, ( past activity) Side left Resistance ball in sock Comments not performed but is doing at home feels good. PT-OP-T Assessment and Plan Start: 02/03/24 08:50 Freq: Status: Active Protocol: Document 04/16/24 13:02 SP (Rec: 04/16/24 13:51 SP [id number]) Physical Therapy Assessment Goals 3 Impairment Lack of HEP Impairment . Shoe Lacer Goal (LTG) Pt will perform progressive HEP with I including postural, alignment, flexibility, strengthening and balance exercises to improve pain, range and strength. 03/03/24: Pt is performing all exercises and she likes the bigger poool noodle, bicycling with the pulleys, range of motion exercises with cane, open book, standing ER and IR with arm at side in neutral 03/22/24: Pt is performing HEP and circulates through various exercises LTG Duration 8 weeks 2 Impairment Decreased left shoulder ROM Impairment . Shoe Lacer Goal (LTG) Pt will present with left shoulder flexion and abduction to at least 160 deg to improve functional use of arm with over tasks. 02/25/24: Supine: MANUELA LEDEZMA /c DOwel: FF 148*, ABD 103* 03/01/24: stand:L FF 127*, 105*, ER 45* (elbow at side), IR hand over full sacrum fingers over R pelvis. 03/03/24: Standing AROM, flexion right to 156 deg and left 130 deg; abduction right 160 deg and left 132 deg 03/22/24: Standing AROM flexion right: 176 deg and left 150 deg; abduction: right 175 deg and left 150 deg 04/14/24: L AROM standing: FF gain 20 deg 135* ABD gain 14 deg 114* ER 0 deg abd 65 deg IR behind back: S2> L3 able to reach higher into cupboards with less pain. LTG Duration 8 weeks progressing 04/14/24 1 Impairment QuickDASH reflects 25% impairment Impairment . Senior Living Goal (LTG) Pt will present with QuickDASH score reflecting no more than 5% impairment to improve ADLs and IADLs. 03/03/24: QuickDASH score reflects 38.63% impairment and pt reports she is much better and her arm is moving more. 03/22/24: QuickDASH score reflects 13.63% improvement LTG Duration 8 weeks Assessment Summary Assessment Pt tolerated tx well, improved scapular corrections with minimal cues back/down neutral positioning during requested feedback proper form with TB HEP review. Good response to thoracic mobility ext and rolling and addition of low resistance to BUE over foam roller exercises with no reports pain with demonstrated increase ROM (not measured) into FF. Pt requested alternative to UBE for home, trialed MANUELA LEDEZMA resisted eccentric FF with no pain reported. Physical Therapy Plan Frequency and Duration Frequency of Treatment 1-2/wk Duration of treatment (weeks) 8 Plan of Care Start Date 03/24/24 Plan of Care End Date 05/24/24 Therapeutic Interventions Therapeutic Interventions Balance Training,Canalithic Repositioning,Home Exercise Program,Joint Mobilizations, Manual Therapy,Neuromuscular Re-education,Patient/Caregiver Education,Self-Care/Home Management,Soft Tissue Mobilization,Taping, Therapeutic Activities, Therapeutic Exercises, Vestibular Rehabilitation Modalities Cold Pack/Ice Massage,Electric Stimulation,Hot Packs, Ultrasound Other Referrals/Consults Referrals/Consults Recommended Orthopedic consult, PCP to check hormone panel Next Visit Focus/Plan Next Note Type Treatment Note Next Visit Plan Ask response and review foam roller ex with added band, eccentric FF band support. Next tx: Pec doorway stretch. Con't manual work with [place] Protocol, over the door scapular hold with elbow extension strengthening.
--- NOTE | 2024-04-20 12:03 | PT.OTN ---
Current Diagnoses Other enthesopathies, not elsewhere classified (04/20/24) Dizziness and giddiness (04/20/24) Physical Therapy Treatment Note PT-OP-A Visit Information Start: 02/03/24 08:50 Freq: Status: Active Protocol: Document 04/20/24 11:22 MB (Rec: 04/20/24 12:03 MB [id number]) Out-Patient Physical Therapy Visit Information Visit Information Visit Type Treatment Note Visit Start Time 11:22 Visit Stop Time 12:02 Visit Number 13 Number of CASH APPLICATION REPRESENTATIVE Visits 0 Evaluation Information Evaluation Date 02/04/24 Precautions Precautions History of BPPV PT-OP-B Current Condition Start: 02/03/24 08:50 Freq: Status: Active Protocol: Document 02/04/24 14:31 MB (Rec: 02/04/24 15:49 MB [id number]) Current Condition History of Current Condition Onset Date 4 months Current Complaints Left shoulder pain History of Current Condition 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 She would like to establish care and have access to someone who can treat her if needed. She currently does not have this. Pt reports gradual onset of left shoulder pain. She walks her dog who is a puller and a yanker. She asks about getting a development trainer after PT. She sleeps on her back d/t lumbar transverse process fractures from the past. She points to B pelvic areas near sacrum. She puts a pillow under her left arm with sleeping. Occ she has pain down the arm and she notices it more at night time. Pt is right handed. She is retired. She only gardens at home. [place] of her parents 12-14 days out of every month. Driving is tiring. Prior Treatments and Tests Left shoulder x-ray is negative Treatment Goals Patient/Caregiver Goals To improve ROM and strength of left arm PT-OP-C Subjective Start: 02/03/24 08:50 Freq: Status: Active Protocol: Document 04/20/24 11:22 MB (Rec: 04/20/24 12:03 MB [id number]) OP-PT Subjective Patient Comments Patient Comments Pt states she is doing well. There are a couple of things she wants to go over. She is here and then is heading down to be with parents for a week and then she is going to [place] to see her kids. PT-OP-J Posture/Palpation/Skin Start: 02/03/24 08:50 Freq: Status: Active Protocol: Document 02/04/24 14:31 MB (Rec: 02/04/24 15:49 MB [id number]) Posture Evaluation Comments Posture Comments Flat thoracic spine proximally , rounded shoulders, right scapula is lower than the left , mid thoracic spine, mild convexity to the left and ribs more pronounced posterior on lower left area, increased supination left foot and increased pronation right foot , history of left ankle fracture. Posteriorly, B pelvis is grossly level and left shoulder is mildly higher than the right. PT-OP-K Range of Motion Start: 02/03/24 08:50 Freq: Status: Active Protocol: Document 04/14/24 11:17 SP (Rec: 04/14/24 12:09 SP [id number]) Shoulder Goniometric Range of Motion Shoulder Left Shoulder ROM WFL No Testing Position Standing Flexion 135 Extension 51 Abduction 114 External Rotation at 0 degrees Abduction 65 Internal Rotation Behind Back (text) L3 Comments L AROM standing: FF gain 20 deg 135* ABD gain 14 deg 114* ER 0 deg abd 65 deg IR behind back: S2> L3 Right Shoulder ROM WFL Yes Testing Position Standing Flexion 180 Extension 65 Abduction 180 Internal Rotation Behind Back (text) T4 Comments R shld AROM: WNL 04/14/24- approx 180 deg: gain 10-14 deg IR behind back discomfort resistance not pain PT-OP-M Strength Start: 02/04/24 15:50 Freq: Status: Active Protocol: Document 02/04/24 14:31 MB (Rec: 02/04/24 15:51 MB [id number]) Shoulder Strength Shoulder Manual Muscle Testing Left Comments Did not test d/t pain and limited range Right Flexion 5 Normal Abduction (C5) 5 Normal External Rotation 4+ Good+ Internal Rotation 4+ Good+ Elbow/Forearm Strength Elbow and Forearm Manual Muscle Testing Left Flexion (C6) 5 Normal Extension (C7) 4+ Good+ Right Flexion (C6) 5 Normal Extension (C7) 5 Normal PT-OP-Q Treatments Start: 02/03/24 08:50 Freq: Status: Active Protocol: Document 04/20/24 11:22 MB (Rec: 04/20/24 12:03 MB [id number]) Cardio Equipment Upper Body Ergometer (UBE) Duration (Minutes) 10 Other 1 minute forward and 1 minute backward Therapeutic Exercises Standing Exercises AROM shoulders Comments Performed today and see findings in goals Manual Therapy Treatment Consent Patient gave verbal consent for manual Yes treatment Other Other Manual Treatments Pt supine with head and legs supported on pillows: left first rib isometric mob, grade III cervical mobs, thoracic positional release, MWM right pect and B upper traps and pects STM, left middle scalene as well Canalithic Repositioning BPPV Treatment Other Comments B Roll Test and Radcliffe-Hallpike and pt with mild nystagmus and dizziness with right Rock- Hallpike. Treated pt with modified Hui for right ear x2 and symptoms and nystagmus are clear with second check PT-OP-T Assessment and Plan Start: 02/03/24 08:50 Freq: Status: Active Protocol: Document 04/20/24 11:22 MB (Rec: 04/20/24 12:03 MB [id number]) Physical Therapy Assessment Goals 3 Impairment Lack of HEP Impairment . Group Home Goal (LTG) Pt will perform progressive HEP with I including postural, alignment, flexibility, strengthening and balance exercises to improve pain, range and strength. 03/03/24: Pt is performing all exercises and she likes the bigger poool noodle, bicycling with the pulleys, range of motion exercises with cane, open book, standing ER and IR with arm at side in neutral 03/22/24: Pt is performing HEP and circulates through various exercises 04/20/24: Pt is doing all exercises and is cycling through them LTG Duration Met 2 Impairment Decreased left shoulder ROM Impairment . Group Home Goal (LTG) Pt will present with left shoulder flexion and abduction to at least 160 deg to improve functional use of arm with over tasks. 02/25/24: Supine: MANUELA LEDEZMA /elisha Ghotrael: FF 148*, ABD 103* 03/01/24: stand:L FF 127*, 105*, ER 45* (elbow at side), IR hand over full sacrum fingers over R pelvis. 03/03/24: Standing AROM, flexion right to 156 deg and left 130 deg; abduction right 160 deg and left 132 deg 03/22/24: Standing AROM flexion right: 176 deg and left 150 deg; abduction: right 175 deg and left 150 deg 04/14/24: L AROM standing: FF gain 20 deg 135* ABD gain 14 deg 114* ER 0 deg abd 65 deg IR behind back: S2> L3 able to reach higher into cupboards with less pain. 04/20/24: AROM in standing: flexion right 156 deg and left 136 deg; abduction right 166 deg and left 163 deg; IR behind back right T3 and left L4. LTG Duration Improved 1 Impairment QuickDASH reflects 25% impairment Impairment . Group Home Goal (LTG) Pt will present with QuickDASH score reflecting no more than 5% impairment to improve ADLs and IADLs. 03/03/24: QuickDASH score reflects 38.63% impairment and pt reports she is much better and her arm is moving more. 03/22/24: QuickDASH score reflects 13.63% improvement 04/20/24: QuickDASH score is the same and reflects 13.63% impairment LTG Duration Improved Assessment Summary Assessment Pt has progressed towards PT goals and she is plateauing. Pt has an adhesive capsulitis presentation and PT recommends follow-up with orthopedist. Pt has been compliant with exercises and she has not tolerate mobilizations of left shoulder well. Will d/c PT. Physical Therapy Plan Other Referrals/Consults Referrals/Consults Recommended Orthopedic consult, PCP to check hormone panel
== END 2024-04-30 08:28 | disposition home or self-care (01) ==
LOC: PHYS 11:15
PROVIDERS: Family Provider Physician Assistant; PCP Physician Assistant; Referring Provider Physician Assistant; Visit Provider Physician Assistant
DX: M77.8 Other enthesopathies, not elsewhere classified (principal); R42 Dizziness and giddiness
CPT/HCPCS: 95992; 97110; 97140; 97161; 97535